=== PATIENT | male | born 1950 | race Caucasian/White ===

== ENCOUNTER → 2024-01-12 11:39 | Outpatient (REF) | payer OTHER, SELFPAY ==
[2024-01-12 12:32] LABS: % Basophils 0.3 % (0-2); % Eosinophils 1.6 % (0-6); % Immature Granulocytes 0.5 % (0-0.5); % Lymphocytes 23.2 % (20.5-51.1); % Monocytes 7.1 % (1.7-9.3); % Neutrophils 67.3 % (42.2-75.2); Absolute Eosinophils 0.2 10^3/uL (0-0.7); Absolute Immature Granulocytes 0.1 10^3/uL (0-0.05); Absolute Lymphocytes 2.2 10^3/uL (1.2-3.4); Absolute Monocytes 0.7 10^3/uL (0.1-0.6); Absolute Neutrophils 6.5 10^3/uL (1.4-6.5); Hematocrit 30.2 % (39.0-52.0); Hemoglobin 9.6 g/dL (13.0-18.0); Mean Corp Hgb Conc. 31.8 g/dL (33.0-37.0); Mean Corpuscular Hgb 32.2 pg (27.0-31.0); Mean Corpuscular Volume 101.3 fL (80.0-94.0); Mean Platelet Volume 10.7 fL (7.4-10.4); Nucleated Red Blood Cells % 0 % (-); Platelet Count 252 10^3/uL (130-400); Red Blood Cell Count 2.98 10^6/uL (4.70-6.10); Red Cell Dist. Width 17.2 % (11.5-14.5); White Blood Cell Count 9.6 10^3/uL (4.8-10.8)
[2024-01-12 12:50] LABS: NT-proBNP 9740 pg/ml
[2024-01-12 12:59] LABS: ALT (SGPT) 28 U/L (0-50); AST (SGOT) 30 U/L (17-59); Albumin 2.8 g/dl (3.5-5.0); Alkaline Phosphatase 277 U/L (38-126); Blood Urea Nitrogen 43 mg/dl (9-20); Calcium 8.5 mg/dl (8.4-10.2); Carbon Dioxide 27 mmol/L (22-30); Chloride 100 mmol/L (98-107); Glucose 95 mg/dl (70-99); Potassium 3.7 mmol/L (3.5-5.1); Sodium 137 mmol/L (135-145); Total Bilirubin 0.7 mg/dl (0.2-1.3); Total Protein 5.5 g/dl (6.3-8.2); eGFR 26.63
== END ==
LOC: REG 11:39
PROVIDERS: ATTENDING PHYSICIAN Nurse Practitioner Family
DX: R06.02 Shortness of breath (principal)
CPT/HCPCS: 36415; 71046; 80053; 83880; 85025; 93005

== ENCOUNTER 2024-01-29 12:10 | Inpatient (IN) | payer OTHER, SELFPAY ==
[2024-01-29] VITALS (13 sets, daily range): BP systolic 97–119; BP diastolic 58–82; BMI 25.3; BMI 23.8; BMI 23.4
[2024-01-29] MEDS: DUONEB 3 ML INH ×3 (07:47→19:22)
[2024-01-29 07:55] LABS: % Basophils 0.2 % (0-2); % Eosinophils 1.1 % (0-6); % Immature Granulocytes 0.4 % (0-0.5); % Lymphocytes 18.1 % (20.5-51.1); % Monocytes 5.8 % (1.7-9.3); % Neutrophils 74.4 % (42.2-75.2); Absolute Eosinophils 0.1 10^3/uL (0-0.7); Absolute Lymphocytes 1.6 10^3/uL (1.2-3.4); Absolute Monocytes 0.5 10^3/uL (0.1-0.6); Absolute Neutrophils 6.6 10^3/uL (1.4-6.5); Hematocrit 31.4 % (39.0-52.0); Mean Corp Hgb Conc. 31.8 g/dL (33.0-37.0); Mean Corpuscular Hgb 32.8 pg (27.0-31.0); Mean Platelet Volume 11.4 fL (7.4-10.4); Nucleated Red Blood Cells % 0 % (-); Platelet Count 137 10^3/uL (130-400); Red Blood Cell Count 3.05 10^6/uL (4.70-6.10); Red Cell Dist. Width 17.4 % (11.5-14.5); White Blood Cell Count 8.9 10^3/uL (4.8-10.8)
[2024-01-29 08:11] LABS: ALT (SGPT) 15 U/L (0-50); AST (SGOT) 21 U/L (17-59); Albumin 3.2 g/dl (3.5-5.0); Alkaline Phosphatase 280 U/L (38-126); Blood Urea Nitrogen 53 mg/dl (9-20); Calcium 8.5 mg/dl (8.4-10.2); Carbon Dioxide 23 mmol/L (22-30); Chloride 101 mmol/L (98-107); Estimated Creatinine Clearance 25 ml/min; Glucose 127 mg/dl (70-99); Potassium 3.3 mmol/L (3.5-5.1); Sodium 136 mmol/L (135-145); Total Bilirubin 0.8 mg/dl (0.2-1.3); Total Protein 5.9 g/dl (6.3-8.2); eGFR 22.29
[2024-01-29 08:21] LABS: NT-proBNP 18300 pg/ml; Troponin I 0.032 ng/ml
--- NOTE | 2024-01-29 09:08 | ED.GENMED ---
History of Present Illness
General
Chief Complaint: Breathing Problem
Source: patient
Exam Limitations: none
Time Seen by Provider: 01/29/24 07:14
Nursing documentation reviewed up to this point in time: agreed with
Travel History
Have you had any contact with someone who has COVID-19?: No
Do you have any symptoms of coronavirus? Fever > 100 degrees, chills, cough, shortness of breath, sore throat, loss of taste or smell, muscle aches, or headache?: No
History of Present Illness
History of Present Illness:
The patient is a 73-year-old man with past medical history of CHF who reports shortness of breath that is increased over the last 5 days. Patient reports that he has taken 80 mg of additional Lasix each day over the last 3 days. Patient denies
chest pain and fever. Patient reports that ever since experiencing COVID towards the end of this past November, he has had coughing and wheezing issues.
Past History
Past History
ED Past Medical History: Arrthythmia (Atrial fibrillation), CAD, CHF, HTN, Hypercholesterolemia, NIDDM, ND, Valvular disease, Hypothyroidism and Other (Ischemic cardiomyopathy, dual-chamber pacemaker)
ED Past Surgical History: Other (ICD)
Social History
Tobacco: Former smoker
Alcohol: None
Drug: None
Personal: Other
Living: with family
Employment: Other
Family History
Family History: CAD
Review of Systems
Review of Systems
Allergies reviewed?: Yes
All Other Systems: ROS reviewed and negative except as documented in HPI and ROS
Constitutional: Reports no symptoms
EENT: Reports no symptoms
Respiratory: Reports trouble breathing
Cardiac: Reports no symptoms
ABD/GI: Reports no symptoms
: Reports no symptoms
Musculoskeletal: Reports edema
Skin: Reports no symptoms
Neurological: Reports no symptoms
Endocrine: Reports no symptoms
Hematologic/Lymphatic: Reports no symptoms
Psychiatric: Reports no symptoms
Phy Exam
Physical Exam
Physical Exam:
Physical Exam
General: Patient is conversational but tachypneic when speaking
Neck: supple. no meningeal signs. normal psoterior pharynx
Heart: s1/s2 regular rate and rhythm,
Lungs: Mild tachypnea. Bilateral lower lobe crackles, left worse than right. Diffuse wheezing bilaterally
Abdomen: normal bowel sounds. not tender. no CVAT
Neuro: alert and oriented. no focal neurological deficits
Skin: no rash
Psychiatric: well kept. interactive and cooperative
Extremities: 2+ pitting edema bilateral lower extremities
Scores
Heart Failure Risk
Heart Failure Risk Score: Not Applicable
Course
Orders/Labs/Results
Orders:
Orders
01/29/24 07:08
Electrocardiogram (*1) Urgent
Reason for Study: Shortness of Breath
EKG- Treatment ONCE
01/29/24 07:35
Ipratropium/Albuterol Sulfate [Duoneb] 3 ml INH R NOW ONE
CR Chest - 2 Views Urgent
Comment:
Reason For Exam: SOB
01/29/24 07:36
Complete Blood Count/With Diff Urgent
Comprehensive Metabolic Panel Urgent
NT-proBNP Urgent
Troponin I Urgent
01/29/24 09:09
Potassium Chloride [KCl] 40 meq 0.9% Sodium Chloride 250 ml [Nss] 250 ml IV NOW
01/29/24 09:14
Potassium Chloride [KCl] 40 meq PO NOW STA
Abnormal Lab Results
01/29/24
07:36
RBC 3.05 L 10^6/uL
(4.70-6.10)
Hgb 10.0 L g/dL
(13.0-18.0)
Hct 31.4 L %
(39.0-52.0)
MCV 103.0 H fL
(80.0-94.0)
MCH 32.8 H pg
(27.0-31.0)
MCHC 31.8 L g/dL
(33.0-37.0)
RDW 17.4 H %
(11.5-14.5)
MPV 11.4 H fL
(7.4-10.4)
Absolute Neuts (auto) 6.6 H 10^3/uL
(1.4-6.5)
Lymphocytes % 18.1 L %
(20.5-51.1)
Potassium 3.3 L mmol/L
(3.5-5.1)
BUN 53 H mg/dl
(9-20)
Creatinine 2.9 H mg/dL
(0.7-1.3)
Glucose 127 H mg/dl
(70-99)
Alkaline Phosphatase 280 H U/L
(38-126)
Total Protein 5.9 L g/dl
(6.3-8.2)
Albumin 3.2 L g/dl
(3.5-5.0)
01/29/24 07:36
01/29/24 07:36
Vital Signs
Initial and Last Documented VS:
Initial Vital Signs
Temp Pulse Resp BP Pulse Ox
98.0 F 77 16 113/78 96
01/29/24 07:08 01/29/24 07:08 01/29/24 07:08 01/29/24 07:08 01/29/24 07:08
Last Documented Vital Signs
Temp Pulse Resp BP Pulse Ox
98.0 F 70 20 110/75 94
01/29/24 07:08 01/29/24 11:00 01/29/24 11:00 01/29/24 11:00 01/29/24 11:00
MDM/Problems Addressed
Differential Diagnosis Includes:
Acute on chronic CHF, pneumonia, PE
MDM/Problems Addressed:
Patient presents with acute on chronic shortness of breath
Chronic conditions affecting care: Cardiomyopathy
Acute Exacerbation and/or Progression of Chronic Illness:
Patient likely has acute on chronic CHF
Acute Exacerbation and/or Progression of Chronic Illness: Cardiomyopathy
*Radiology
Radiology exam reviewed: preliminary read by ED provider (Increased vascular congestion) and radiology read reviewed
*Pulse Oximetry
Patient hypoxic: no
*EKG
Interpreted by ED Provider?: Yes
Interpretation: abnormal
Comparison EKG: no changes
Rate: normal
Rhythm: ventricular paced
[place]: normal axis
Interval: normal interval
QRS Pattern: wide non-specific
Ischemia: non-specific ST changes
*Hand Finisher Interpretation
Rate: normal
Interpretation: abnormal
Rhythm: ventricular paced
*Critical Care Note
Total Time (30-74mins, 75-104mins- exclusive of procedures): 35 minutes of critical ca
comment:
35 minutes of critical care given to the patient including frequent reassessments of his respiratory effort, reviewing his chest x-ray, blood work, recent hospital records as well as his EKG and lab work.
Data Reviewed
Review of Other/Old Records Reveals: Testing (Last cardiac echo showed an EF of 10 to 15%)
Source: patient
Patient Management
Discussion with other providers: Hospitalist
Escalation/DeEscalation of care consider admission/obs:
Given patient's increased respiratory effort with just speaking, decision made to admit the patient for diuresis. Given his hypokalemia, his potassium will first be replaced before any Lasix is given.
ED Attending Note
-
Portions of this chart may have been created with voice recognition software.� Occasional wrong word or��sound alike� substitutions may have occurred due to the inherent limitations of voice recognition software.
Discharge Plan
Departure
Patient Disposition: Admit
Date of Disposition: 01/29/24
Time of Disposition: 09:08
Admit to: Telemetry
Presentation/result/management discussed w/ accepting MD/DO: Hospitalist
Patient with high blood pressure during this ER visit?: No
Condition: Fair
Covid-19: Not Applicable
Discharge Problem:
Acute on chronic CHF, Acute dyspnea
Prescriptions:
No Action
atorvastatin 40 MG tablet
40 mg PO HS
carvedilol 6.25 MG tablet
6.25 mg PO BID
lorazepam 0.5 MG tablet
0.5 mg PO .SEE BELOW PRN (Reason: anxiety)
Patient Comments:
01/29/2024, pt. filled this med. on 01/09/2024 for 60 tablets according to PDMP. Prescribed one tablet BIDPRN; however, pt. states to be taking 2 tablets HSPRN.
cyanocobalamin (vitamin B-12) 1,000 MCG tablet
1,000 mcg PO BID
allopurinol 100 MG tablet
100 mg PO BID
calcitriol 0.25 MCG capsule
0.25 mcg PO DAILY
amiodarone [Pacerone] 200 MG tablet
200 mg PO BID
magnesium oxide 500 MG tablet
500 mg PO DAILY
Eliquis 5 MG tablet
5 mg PO BID
aspirin 81 mg Tablet,Delayed Release (Dr/Ec)
81 mg PO DAILY
levothyroxine 88 mcg Tablet
88 mcg PO DAILY
tamsulosin 0.4 mg Capsule
0.4 mg PO HS
Patient Comments:
01/29/2024, took this morning b/c missed last night's dose per pt.
diphenhydramine-acetaminophen [Tylenol PM Extra Strength] 25-500 mg Tablet
2 tab PO HS PRN (Reason: sleep)
cholecalciferol (vitamin D3) 25 mcg (1,000 unit) Tablet
25 mcg PO BID
Blink Gel Tears 0.25 % Drops,Gel
1 drp ophthalmic (eye) BID
Rx Instructions:
01/29/2024, both eyes.
potassium chloride [Klor-Con M20] 20 MEQ tablet,ER particles/crystals
20 meq PO BID
trazodone 50 mg Tablet
50 mg PO HS PRN (Reason: sleep)
furosemide 80 mg Tablet
80 mg PO BID
albuterol sulfate 90 mcg/actuation Hfa Aerosol Inhaler
1 puff INHALATION R Q4HPRN PRN (Reason: sob)
PreserVision AREDS 2,148 mcg-113 mg-45 mg-17.4mg Tablet
1 tab PO BID
Referrals:
Pedro Franks MD [Family Provider] -
Interventions
Interventions:
*Risk Screen - Suicide Last Done: 01/29/24 07:30
*General Assessment Last Done: 01/29/24 07:30
*Neglect/Abuse Screening Last Done: 01/29/24 07:30
*ED COVID-19 Vaccine History Last Done: 01/29/24 07:08
ED- Cardiac Assessment Last Done: 01/29/24 07:31
ED- Pulmonary Assessment Last Done: 01/29/24 07:31
[2024-01-29] MEDS: KCL 40 MEQ PO (09:38)
--- NOTE | 2024-01-29 12:25 | HPS.HSE ---
Family Physician
-
Family Physician: Pedro Franks
Chief Complaint
-
Shortness of breath and weight gain.
History of Present Illness
Patient presents with progressive shortness of breath over the last 3 days.
Patient with known ischemic cardiomyopathy with EF of 10-15% close he has had end of November because of volume depletion and renal insufficiency leading to medication changes.
He states in the beginning of December he also had COVID�19 infection.
Over the last 3 days he started to notice increasing shortness of breath and also leg edema. He does not check his weight on a daily basis. His weight has gone up 30 pounds based on weight today in ER.
He states has been taking Lasix currently 80 mg twice a day. He took his morning dose.
Not much of cough but he has Associated wheezing. Denies any history of lung disease but uses albuterol inhaler at home.
No chest pain or palpitations.
He is not hypoxic but noted to have CHF on the chest x-ray and also elevated BNP.
Medical History
Past Medical History
Past Medical History: Reports Arrhythmia (Paroxysmal atrial fibrillation), CHF, HTN, Hypercholesterolemia, Hypothyroidism, Renal Failure (Chronic kidney disease stage III) and Other (Gout, BPH)
Past Surgical History: Reports Cardiac (Biventricular ICD)
Social History
Tobacco: Non-smoker
Alcohol: None
Drug: None
Family History
Family History: Not pertinent
Allergies / Home Medications
Allergies reflects when Allergies were last updated in [facility].
Home Medications with original date entered in [facility]
Allergy/Medication List:
Allergies
Allergy/AdvReac Type Severity Reaction Status Date / Time
Cephalosporins Allergy Rash Verified 01/29/24 07:13
moxifloxacin HCl Allergy Hives Verified 01/29/24 07:13
[From Avelox]
penicillin V Allergy Hives Verified 01/29/24 07:13
Penicillins Allergy Hives Verified 01/29/24 07:13
Home Medications
atorvastatin 40 mg tablet 40 mg PO HS High cholesterol 01/30/12
carvedilol 6.25 mg tablet 6.25 mg PO BID Blood pressure 01/30/12
lorazepam 0.5 mg tablet 0.5 mg PO .SEE BELOW PRN anxiety 01/30/12
allopurinol 100 mg tablet 100 mg PO BID GOUT 05/26/19
calcitriol 0.25 mcg capsule 0.25 mcg PO DAILY Kidney Disease 05/26/19
cyanocobalamin (vitamin B-12) 1,000 mcg tablet 1,000 mcg PO BID Supplement 05/26/19
amiodarone 200 mg tablet (Pacerone) 200 mg PO BID Arrhythmia 08/28/20
apixaban 5 mg tablet (Eliquis) 5 mg PO BID Blood clot prevention/tx 04/18/22
magnesium oxide 500 mg PO DAILY Electrolyte Repletion 04/18/22
aspirin 81 mg tablet,delayed release 81 mg PO DAILY Blood Clot Prevention/Tx 12/15/23
cholecalciferol (vitamin D3) 25 mcg (1,000 unit) tablet 25 mcg PO BID supplement 12/15/23
diphenhydramine 25 mg-acetaminophen 500 mg tablet (Tylenol PM Extra Strength) 2 tab PO HS PRN sleep 12/15/23
levothyroxine 88 mcg tablet 88 mcg PO DAILY thyroid 12/15/23
polyethylene glycol 400 0.25 % eye gel drops (Blink Gel Tears) 1 drp ophthalmic (eye) BID Eye Condition 12/15/23
tamsulosin 0.4 mg capsule 0.4 mg PO HS Urinary Issue 12/15/23
potassium chloride 20 mEq tablet,extended release(part/cryst) (Klor-Con M) 20 meq PO BID Electrolyte Repletion 12/16/23
albuterol sulfate 90 mcg/actuation aerosol inhaler 1 puff inhalation R Q4HPRN PRN sob 01/29/24
furosemide 80 mg tablet 80 mg PO BID Fluid Retention/Swelling 01/29/24
trazodone 50 mg tablet 50 mg PO HS PRN sleep 01/29/24
vitamins A,C,B-kroc-gihsak 2,148 mcg-113 mg-45 mg-17.4 mg tablet (PreserVision AREDS) 1 tab PO BID Supplement 01/29/24
Review of Systems
-
A 12 point ROS was completed and negative except as noted: Yes
Physical Exam
Vital Signs
Vital Signs
Temp Pulse Resp BP Pulse Ox
98.0 F 70 20 110/75 94
01/29/24 07:08 01/29/24 11:00 01/29/24 11:00 01/29/24 11:00 01/29/24 11:00
Physical Exam
General: No Apparent Distress
HEENT: Moist mucous membranes
Respiratory: Wheezes (Bilateral expiratory wheeze), Crackles (Bilateral lower zone) and Non Labored Respirations; No Accessory Resp Muscle Use
Cardiac: S1/S2, Regular Rhythm and JVD
GI: Soft and Non Tender
Musculoskeletal: Edema, Left Lower Extremity and Edema, Right Lower Extremity (1+ bilaterally)
Neuro: AO x 3
Psych: Calm; No Confused
Laboratory Results
-
01/29/24 07:36
01/29/24 07:36
Laboratory Results
Total Bilirubin 0.8 mg/dl (0.2-1.3) 01/29/24 07:36
AST 21 U/L (17-59) 01/29/24 07:36
ALT 15 U/L (0-50) 01/29/24 07:36
Alkaline Phosphatase 280 U/L (38-126) H 01/29/24 07:36
Troponin I 0.032 ng/ml 01/29/24 07:36
Data Reviewed
-
Diagnostic Radiology: Report Reviewed by me (Chest x-ray)
Lab Data: Labs Reviewed by me
Impression/Plan
-
Acute on chronic heart failure with reduced EF-patient known to have ischemic cardiomyopathy with EF of 10 to 15%. His got short of breath, increased lower extremity edema, increased weight, increased BNP and also chest x-ray evident of vascular
congestion noted all suggestive of acute CHF decompensation.
Unclear precipitating event.
Admit to hospital. Start on IV Lasix. Consult cardiology.
Acute bronchospasm - suspect cardiac wheeze. No history of COPD or asthma. Continue with Lasix and add DuoNeb nebulizers.
Chronic kidney disease stage IV based on recent GFR. Elevated creatinine compared to his most recent baseline. Follow closely creatinine with diuresis.
Hypertension-continue with his home medication
Paroxysmal atrial fibrillation-patient with a ventricular paced rhythm. Continue beta-laura, amiodarone, Eliquis.
Hypokalemia-replete
Full code
--- NOTE | 2024-01-29 12:49 | CON.CAR ---
Addendum entered and electronically signed by Zulema Fink MD 01/29/24 16:29:
I saw and examined the patient.
The AIR GUN OPERATOR's note was reviewed and I agree with the note.
Comment: 73 y/o male with ICM EF 10-15%, hx VT storm s/p VT ablation, on amiodarone, BI-V ICD in place (BS), CAD with stenting, dyslipidemia, PAF on Eliquis, and CKD. He recently had COVID in December. Since that time, he feels like he has been
more short of breath. He has undergone frequent life stressors with the loss of his best friend and sister this month. With this, he has not been weighing himself daily. Weight has gone up. He did try to increase his Lasix at home to no avail.
Currently, he is fine if he does not move but still short of breath with movement. He no chest pain or palpitations. On exam, he has an elevated JVP, bibasilar rales, regular rate and rhythm, abdomen is obese but soft, 1+ pitting edema
bilaterally. Chest x-ray showed pulmonary edema on my review of the images. Agree with IV Lasix with intensive monitoring of his creatinine given his CKD. Per his primary legal aid he is on asa and eliquis. Monitor tele given h/o VT.
Will follow.
Original Note:
Consultation
Consultation Request
Date/Time Consultation Requested: 01/29/24 1154
Date/Time Consultation Performed: 01/29/24 1255
Requesting Provider: Dr. Villalobos
Performing Provider: Marjan DELUCA for Dr. Fink
Reason for Consultation: CHF
Medical History
-
Chief Complaint: SOB, edema
History of Present Illness:
73 y/o male with ICM EF 10-15%, hx VT storm s/p VT ablation, on amiodarone, BI-V ICD in place (BS), CAD with stenting, dyslipidemia, PAF on Eliquis, and CKD. He was hospitalized in November 2023 with poor PO intake, hypotension, OFELIA. ACEI was stopped
and lasix was held. Diuretic later resumed as OP. He is here for evaluation of SOB and LE edema since Friday. He had two slices of salty pizza prior to this, but otherwise has been taking his lasix 80 mg PO BID. He actually took an extra 80 mg the
past 3 days, but it did not help. He does not monitor home weights daily, but OV weight 12/29/23 when he was feeling well was 73 kg and he is currently 82.3 kg in ER.
Past Medical History
Past Medical History: Arrhythmias, CAD, CHF, Hypercholesterolemia and Renal Failure
Social History
Tobacco: Former Smoker
Family History
Family History: Reviewed & Not Pertinent
Allergies / Home Medications
Allergy/AdvReac Type Severity Reaction Status Date / Time
Cephalosporins Allergy Rash Verified 01/29/24 07:13
moxifloxacin HCl Allergy Hives Verified 01/29/24 07:13
[From Avelox]
penicillin V Allergy Hives Verified 01/29/24 07:13
Penicillins Allergy Hives Verified 01/29/24 07:13
Medication Instructions Recorded Confirmed Type
atorvastatin 40 mg tablet 40 mg PO HS High cholesterol 01/30/12 01/29/24 History
carvedilol 6.25 mg tablet 6.25 mg PO BID Blood pressure 01/30/12 01/29/24 History
lorazepam 0.5 mg tablet 0.5 mg PO .SEE BELOW PRN 01/30/12 01/29/24 History
anxiety
allopurinol 100 mg tablet 100 mg PO BID GOUT 05/26/19 01/29/24 History
calcitriol 0.25 mcg capsule 0.25 mcg PO DAILY Kidney Disease 05/26/19 01/29/24 History
cyanocobalamin (vitamin B-12) 1,000 mcg PO BID Supplement 05/26/19 01/29/24 History
1,000 mcg tablet
amiodarone 200 mg tablet (Pacerone) 200 mg PO BID Arrhythmia 08/28/20 01/29/24 History
apixaban 5 mg tablet (Eliquis) 5 mg PO BID Blood clot 04/18/22 01/29/24 History
prevention/tx
magnesium oxide 500 mg PO DAILY Electrolyte 04/18/22 01/29/24 History
Repletion
aspirin 81 mg tablet,delayed 81 mg PO DAILY Blood Clot 12/15/23 01/29/24 History
release Prevention/Tx
cholecalciferol (vitamin D3) 25 25 mcg PO BID supplement 12/15/23 01/29/24 History
mcg (1,000 unit) tablet
diphenhydramine 25 2 tab PO HS PRN sleep 12/15/23 01/29/24 History
mg-acetaminophen 500 mg tablet
(Tylenol PM Extra Strength)
levothyroxine 88 mcg tablet 88 mcg PO DAILY thyroid 12/15/23 01/29/24 History
polyethylene glycol 400 0.25 % eye 1 drp ophthalmic (eye) BID Eye 12/15/23 01/29/24 History
gel drops (Blink Gel Tears) Condition
tamsulosin 0.4 mg capsule 0.4 mg PO HS Urinary Issue 12/15/23 01/29/24 History
potassium chloride 20 mEq 20 meq PO BID Electrolyte Repletion 12/16/23 01/29/24 History
tablet,extended
release(part/cryst) (Klor-Con M)
albuterol sulfate 90 mcg/actuation 1 puff inhalation R Q4HPRN PRN sob 01/29/24 01/29/24 History
aerosol inhaler
furosemide 80 mg tablet 80 mg PO BID Fluid 01/29/24 01/29/24 History
Retention/Swelling
trazodone 50 mg tablet 50 mg PO HS PRN sleep 01/29/24 01/29/24 History
vitamins A,C,K-iocw-rfiufw 2,148 1 tab PO BID Supplement 01/29/24 01/29/24 History
mcg-113 mg-45 mg-17.4 mg tablet
(PreserVision AREDS)
Review of Systems
-
History Source: Patient
All other systems: Negative unless noted
Respiratory: Trouble Breathing
Musculoskeletal: Edema
Physical Exam
Vital Signs
Temp Pulse Resp BP Pulse Ox
98.0 F 70 20 110/75 94
01/29/24 07:08 01/29/24 11:00 01/29/24 11:00 01/29/24 11:00 01/29/24 11:00
Lab Results
01/29/24 07:36
01/29/24 07:36
Troponin I 0.032 ng/ml 01/29/24 07:36
Cke-G-Kieeenqkipj Pept 66403 pg/ml 01/29/24 07:36
Physical Exam
General: Well Developed and No Apparent Distress
HEENT: Normocephalic and Anicteric
Respiratory: Wheezes (right upper base, slight) and Crackles (bases)
Cardiac: Regular Rhythm and Peripheral Edema (+2 BLE edema)
Genito-urinary: Clear Urine
Musculoskeletal: Edema
Skin: Warm and Dry
Neuro: AO x 3
Psych: Calm
Impression / Plan
-
Ymrkd-lj-uxfdqjq HFrEF:
-agree with IV diuresis, which requires intensive monitoring
-CHF consult
-sodium/fluid restriction
ICM EF 10-15%:
-continue BB
-other meds limited by renal function
-Bi-V ICD in place
Hx VT s/p ablation:
-on amiodarone and BB
-Bi-V ICD in place
Hypokalemia:
-replace and monitor
CAD with hx stenting:
-continue ASA, statin, BB
PAF:
-stable in SR
-continue Eliquis for OAC
CKD:
-monitor with diuresis
Data Reviewed
-
EKG: Tracing Personally Visualized and interpreted ( [facility]OOK)
Radiology: Report Reviewed by me (CXR: Subtle blunting of the posterior costophrenic angle. Mild cardiomegaly. Mild vascular and slightly increased interstitial prominence is noted, as well has suggestion of subtle patchy acinar opacity, raising
possibility of congestive heart failure or volume overload. No pneumothorax.)
Medical Tests (Nuc Med, Echo etc): Report Reviewed by me (Echo 12/16/23: Severely dilated LV with severely reduced systolic function. Estimated EF of 10-15%. LAD and RCA territory hypokinesis and akinesis. Normal right ventricular size and
function. Severe left atrial dilation. Thickened and restricted leaflet motion with moderate mitral regurgitation.)
Labs: Labs Reviewed by me
[2024-01-29] MEDS: LASIX 80 MG IV (16:24)
[2024-01-29] MEDS: COREG 6.25 MG PO (20:55)
[2024-01-29] MEDS: ELIQUIS 5 MG PO (20:56)
[2024-01-29] MEDS: KCL 20 MEQ PO (20:56)
[2024-01-29] MEDS: REFRESH CELLUVISC GEL 1 DROPS BOTH EYES (20:57)
[2024-01-29] MEDS: PACERONE 200 MG PO (20:57)
[2024-01-29] MEDS: VITAMIN B-12 1000 MCG PO (20:57)
[2024-01-29] MEDS: VITAMIN D3 (cholecalciferol) 25 MCG PO (20:57)
[2024-01-29] MEDS: OCUVITE SOFTGEL 1 CAP PO (20:57)
[2024-01-29] MEDS: ZYLOPRIM 100 MG PO (20:58)
[2024-01-29] MEDS: LIPITOR 40 MG PO (21:58)
[2024-01-29] MEDS: FLOMAX 0.400000000000000022 MG PO (21:58)
[2024-01-29] MEDS: ATIVAN 1 MG PO (22:07)
[2024-01-30 03:20] VITALS: BP 111/48
[2024-01-30 06:00] VITALS: BMI 23.4
[2024-01-30] MEDS: SYNTHROID 88 MCG PO (06:16)
[2024-01-30 06:56] LABS: Hematocrit 29.7 % (39.0-52.0); Hemoglobin 9.4 g/dL (13.0-18.0); Mean Corp Hgb Conc. 31.6 g/dL (33.0-37.0); Mean Corpuscular Hgb 32.5 pg (27.0-31.0); Mean Corpuscular Volume 102.8 fL (80.0-94.0); Mean Platelet Volume 10.9 fL (7.4-10.4); Platelet Count 122 10^3/uL (130-400); Red Blood Cell Count 2.89 10^6/uL (4.70-6.10); Red Cell Dist. Width 17.2 % (11.5-14.5); White Blood Cell Count 8.7 10^3/uL (4.8-10.8)
[2024-01-30 07:00] VITALS: BP 115/79
[2024-01-30] MEDS: DUONEB 3 ML INH ×4 (07:06→19:23)
[2024-01-30 07:14] LABS: Blood Urea Nitrogen 52 mg/dl (9-20); Calcium 8.6 mg/dl (8.4-10.2); Carbon Dioxide 25 mmol/L (22-30); Chloride 103 mmol/L (98-107); Estimated Creatinine Clearance 25 ml/min; Glucose 76 mg/dl (70-99); Potassium 3.8 mmol/L (3.5-5.1); Sodium 137 mmol/L (135-145); eGFR 23.24
[2024-01-30] MEDS: MAGNESIUM OXIDE 500 MG PO (08:37)
[2024-01-30] MEDS: VITAMIN B-12 1000 MCG PO ×2 (08:37→21:13)
[2024-01-30] MEDS: ZYLOPRIM 100 MG PO ×2 (08:37→21:13)
[2024-01-30] MEDS: PACERONE 200 MG PO ×2 (08:37→21:13)
[2024-01-30] MEDS: ELIQUIS 5 MG PO ×2 (08:37→21:12)
[2024-01-30] MEDS: KCL 20 MEQ PO ×2 (08:37→21:13)
[2024-01-30] MEDS: OCUVITE SOFTGEL 1 CAP PO ×2 (08:37→21:12)
[2024-01-30] MEDS: REFRESH CELLUVISC GEL 6 DROPS BOTH EYES (08:38)
[2024-01-30] MEDS: ROCALTROL 0.25 MCG PO (08:38)
[2024-01-30] MEDS: LASIX 80 MG IV ×2 (08:38→15:48)
[2024-01-30] MEDS: ASPIR LOW (ENTERIC COATED) 81 MG PO (08:38)
[2024-01-30] MEDS: VITAMIN D3 (cholecalciferol) 25 MCG PO ×2 (08:38→21:13)
[2024-01-30] MEDS: COREG 6.25 MG PO ×2 (08:38→21:12)
[2024-01-30 10:55] VITALS: BMI 23.4
[2024-01-30 11:00] VITALS: BP 118/67
--- NOTE | 2024-01-30 11:15 | W.PN.HOSP.TC ---
Today's Communication/Plan
-
Continue with IV diuresis. Follow weight.
Continue the nebulizers. Add steroids.
Assessment / Plan
Assessment / Plan
Acute on chronic heart failure with reduced EF-patient known to have ischemic cardiomyopathy with EF of 10 to 15%.� His got short of breath, increased lower extremity edema, increased weight, increased BNP and also chest x-ray evident of vascular
congestion noted all suggestive of acute CHF decompensation.
Unclear precipitating event.
Improving wt ;remains on RA .CW IV Lasix.�
Appreciate cardiology input.
Acute bronchospasm - suspected cardiac wheeze.� No history of COPD or asthma but had recent COVID . Remains wheezy and symptomatic. He has cough which is dry . Can rule out post infection reactive airway disease.� Continue with Lasix and add DuoNeb
nebulizers , add steroids and see.
Chronic kidney disease stage IV based on recent GFR.� Elevated creatinine compared to his most recent baseline.� Follow closely creatinine with diuresis.
Hypertension-continue with his home medication
Paroxysmal atrial fibrillation-patient with a ventricular paced rhythm.� Continue beta-laura, amiodarone, Eliquis.
Hypokalemia-replete
Full code
Anticipated Discharge: 24 - 48 hours
Subjective/Interval History
-
Date of Service: January 30, 2024
Shortness of breath better but still feels it. He is more symptomatic because of wheeze. He has it in the night and which keeps him awake.
Before coming to the hospital he was also having cough not much phlegm. No history of COPD/emphysema / asthma.
Objective Data
-
Labs:
Laboratory Results
01/30/24
06:27
WBC 8.7
Hgb 9.4 L
Hct 29.7 L
Plt Count 122 L
Sodium 137
Potassium 3.8
Chloride 103
Carbon Dioxide 25
BUN 52 H
Creatinine 2.8 H
Glucose 76
Calcium 8.6
Vital Signs:
Vital Signs
Temp Pulse Resp BP Pulse Ox
97.4 F 70 20 115/79 92
01/30/24 07:00 01/30/24 11:14 01/30/24 11:14 01/30/24 07:00 01/30/24 11:14
I&O
01/29/24 01/30/24 01/31/24
06:59 06:59 06:59
Intake Total 440 / 440 240 / 240
Output Total 425 / 425 740 / 740
Balance 15 / 15 -500 / -500
Review of Systems
-
Constitutional: Denies Fever
EENT: Denies Sore Throat
Respiratory: Reports Cough, Trouble Breathing and Wheezing
Cardiac: Denies Chest Pain
Abdomen/GI: Denies Abdominal Pain, Nausea or Vomiting
Neuro: Denies Dizzy
Physical Exam
-
General: No Apparent Distress
HEENT: Moist Mucous Membranes
Respiratory: Wheezes, Crackles (bibasal) and Non Labored Respirations; Negative Accessory Resp Muscle Use
Cardiac: Regular Rhythm (av paced on monitor) and S1/S2
GI: Soft
Musculoskeletal: Edema, Right Lower Extrem and Edema, Left Lower Extrem
Neuro: AO x 3
Psych: Calm
Data Reviewed
-
Labs: Labs Reviewed by me
[2024-01-30] MEDS: DECADRON 4 MG IV (12:33)
--- NOTE | 2024-01-30 14:31 | W.PN.CD ---
Today's Communication / Plan
-
start hydralazine 25mg bid
OK with home tomorrow
Impression / Plan
-
Sgoqy-ew-yiazups HFrEF:
-wt down 14 lbs. He wants to go home by tomorrow
- We had a long discussion about dietary sodium restriction. Thierno has not been compliant. He lived with EF 10% for past 25 yrs with NO clinical CHF. He is now in a different phase and is declining. He understands that his life is nearing the end and
tells me he doubts he will make it to the end of 2023. Unfortunately I believe he is correct.
- Add hydralazine 25mg bid for afterload reduction. We had to stop ACEI/ARB due to hyperkalemia with renal failure
ICM EF 10-15%:
-continue BB
-Add hydralazine 25mg bid
-other meds limited by renal function
-Bi-V ICD in place
Hx VT s/p ablation:
-on amiodarone and BB
-Bi-V ICD in place
Hypokalemia:
-replace and monitor
CAD with hx stenting:
-continue ASA, statin, BB
PAF:
-stable in SR
-continue Eliquis for OAC
CKD:
-diuresed without penalty
Dispo: I think he is fine for discharge tomorrow. Asked him to call my office to see me in next 4 wks
Physical Exam
Vital Signs/Labs
Vital Signs
Temp Pulse Resp BP Pulse Ox
97.4 F 70 20 118/67 92
01/30/24 11:00 01/30/24 11:14 01/30/24 11:14 01/30/24 11:00 01/30/24 11:14
01/29/24 01/30/24 01/31/24
06:59 06:59 06:59
Actual Weight 167 lb 9.6 oz
01/30/24 06:27
01/30/24 06:27
01/29/24
07:36
Ngk-C-Zkfqumkugxm Pept 48099
LAB Results
01/29/24
07:36
Troponin I 0.032
Physical Exam
Constitutional: No acute distress and Comfortable
EENT: Anicteric
Cardiovascular: Rhythm & rate is regular, S1S2 is normal and Murmur/rub/gallop absent
Respiratory: Respiratory effort normal, Lungs clear to auscul. and Wheeze Absent
GI: Soft and Non tender
Neuro/Psych: Motor deficits absent
Data Reviewed
-
Date of Service: January 30, 2024
[2024-01-30 15:00] VITALS: BP 119/79
[2024-01-30] MEDS: APRESOLINE 25 MG PO ×2 (15:48→22:16)
--- NOTE | 2024-01-30 16:02 | CM ---
Addendum entered by KIN Dos Santos 01/30/24 16:17:
Received TT from Palliative offering services. Went to talk to patient however he was not available. Will let CM on w/e know to ask him if he wants Palliative.
Original Note:
Reviewed chart, met with patient to obtain information for assessment. Patient stated that he lives with his sister in a single home. He is independent with his ADLs and personal care as well as dressing, bathing and toileting. He ambulates without
the use of an assistive device. 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
Patient drives and can get to all his appointments.
He has never had VN (did in the distant past)
Patient has never been to a SNF.
Patient stated that he is going to drive himself home tomorrow when he is hoping to be cleared for discharge.
Patient has a prescription plan and uses the [facility] pharmacy on [facility] for all of his medications.
His PCP is Dr. Pedro Franks.
Patient does not anticipate any needs from CM dept.
Plan: Case management will continue to follow and assist with discharge planning. Patient would like to return home when stable.
--- NOTE | 2024-01-30 16:04 | W.HF.CON ---
Heart Failure
- LV Function
Left ventricular function study result: LV Ejection fraction </= 35% (ECHO 12/16/23)
Ejection Fraction Percentage: 10-15
- ARNI
Patient already on ARNI: No
Heart Failure ARNI Contraindication: Acute Renal Failure, Hypotension
- ACEI/ARB
Patient already on ACEI/ARB: No
Heart Failure ACEI/ARB Contraindication: Acute Renal Failure, Hypotension
- Beta Vivian
Patient already on Evidence Based Beta Vivian: Yes
- Mineralocorticord Receptor Antagonist
Patient already on MRA: No
Heart Failure MRA Contraindication: Cr > 2.5 in Men
- SGLT-2 Inhibitor
Patient already on SGLT-2 Inhibitor: No
Heart Failure SGLT-2 Inhibitor Contraindication: eGFR < 25
- Afib Anticoagulation
Patient already on Anticoagulation for Afib: Yes
- NYHA CHF Classification
NYHA CHF Classification Level: Class III - Symptoms w/ min exertion, interferes w/ nml daily activity
- ACC/AHA Stage
ACC/AHA Stage: Stage D: Advanced Heart Failure
[2024-01-30 19:57] VITALS: BP 124/80
[2024-01-30] MEDS: REFRESH CELLUVISC GEL 1 DROPS BOTH EYES (21:11)
[2024-01-30] MEDS: FLOMAX 0.400000000000000022 MG PO (21:12)
[2024-01-30] MEDS: LIPITOR 40 MG PO (21:12)
[2024-01-30] MEDS: ATIVAN 1 MG PO (22:20)
[2024-01-30 23:01] VITALS: BP 121/69
[2024-01-31] MEDS: DECADRON 4 MG IV (00:15)
[2024-01-31 03:38] VITALS: BP 101/60
[2024-01-31 06:05] VITALS: BMI 22.8
[2024-01-31] MEDS: SYNTHROID 88 MCG PO (06:39)
[2024-01-31 07:21] VITALS: BP 101/44
[2024-01-31] MEDS: DUONEB 3 ML INH (07:53)
[2024-01-31 08:35] LABS: Blood Urea Nitrogen 53 mg/dl (9-20); Calcium 8.7 mg/dl (8.4-10.2); Carbon Dioxide 23 mmol/L (22-30); Chloride 106 mmol/L (98-107); Estimated Creatinine Clearance 24 ml/min; Glucose 98 mg/dl (70-99); Potassium 4.6 mmol/L (3.5-5.1); Sodium 137 mmol/L (135-145); eGFR 22.29
[2024-01-31] MEDS: OCUVITE SOFTGEL 1 CAP PO (08:37)
[2024-01-31] MEDS: ROCALTROL 0.25 MCG PO (08:37)
[2024-01-31] MEDS: ELIQUIS 5 MG PO (08:37)
[2024-01-31] MEDS: ZYLOPRIM 100 MG PO (08:37)
[2024-01-31] MEDS: ASPIR LOW (ENTERIC COATED) 81 MG PO (08:37)
[2024-01-31] MEDS: KCL 20 MEQ PO (08:38)
[2024-01-31] MEDS: COREG 6.25 MG PO (08:38)
[2024-01-31] MEDS: VITAMIN D3 (cholecalciferol) 25 MCG PO (08:38)
[2024-01-31] MEDS: MAGNESIUM OXIDE 500 MG PO (08:38)
[2024-01-31] MEDS: PACERONE 200 MG PO (08:38)
[2024-01-31] MEDS: APRESOLINE 25 MG PO (08:38)
[2024-01-31] MEDS: VITAMIN B-12 1000 MCG PO (08:38)
[2024-01-31] MEDS: REFRESH CELLUVISC GEL 6 DROPS BOTH EYES (08:38)
--- NOTE | 2024-01-31 09:44 | W.PN.HOSP.TC ---
Today's Communication/Plan
-
DC
Assessment / Plan
Assessment / Plan
Acute on chronic heart failure with reduced EF-patient known to have ischemic cardiomyopathy with EF of 10 to 15%.� short of breath, increased lower extremity edema, increased weight, increased BNP and also chest x-ray evident of vascular
congestion noted all suggestive of acute CHF decompensation.
Unclear precipitating event. Suspect compliance issues.
Improving wt ;remains on RA .
Switch to oral Lasix.
Appreciate cardiology input-not tolerating ROYAL inhibitor/ARB because of renal issues. Switch to hydralazine.
Acute bronchospasm - suspected cardiac wheeze.� No history of COPD or asthma but had recent COVID . Remains wheezy and symptomatic. He has cough which is dry . Can rule out post infection reactive airway disease from acute bronchitis.� added
steroids-improving breathing. Switch to oral prednisone and taper at home. He has as needed inhaler at home.
Chronic kidney disease stage IV based on recent GFR.� Elevated creatinine compared to his most recent baseline.� Follow closely creatinine with diuresis. Advised to repeat BMP in a week
Hypertension-continue with his current regimen
Paroxysmal atrial fibrillation-patient with a ventricular paced rhythm.� Continue beta-laura, amiodarone, Eliquis.
Hypokalemia-replete
Full code
Medically stable for discharge home today.
Discussed with patient regarding importance of compliance with diet, weight and medication and follow-up.
Also discussed about medication changes.
Total time of discharge 32 min
Anticipated Discharge: Today
Subjective/Interval History
-
Date of Service: January 31, 2024
Feeling improved with regards to breathing. His weight is down to 163 pounds which he thinks is low for him. The weight of 15o's artificially low apparently for him.
Less wheezy today.
He has a cough but not green in color not increased amount.
Objective Data
-
Labs:
Laboratory Results
01/31/24
07:22
Sodium 137
Potassium 4.6
Chloride 106
Carbon Dioxide 23
BUN 53 H
Creatinine 2.9 H
Glucose 98
Calcium 8.7
Vital Signs:
Vital Signs
Temp Pulse Resp BP Pulse Ox
97.9 F 70 16 101/44 95
01/31/24 07:21 01/31/24 07:56 01/31/24 07:56 01/31/24 07:21 01/31/24 07:56
I&O
01/30/24 01/31/24 02/01/24
06:59 06:59 07:59
Intake Total 440 / 440 1380 / 1380
Output Total 425 / 425 2280 / 2280
Balance 15 / 15 -900 / -900
Review of Systems
-
Constitutional: Denies Fever
EENT: Denies Sore Throat
Cardiac: Denies Chest Pain
Abdomen/GI: Denies Nausea or Vomiting
Neuro: Denies Dizzy
Physical Exam
-
General: No Apparent Distress
HEENT: Moist Mucous Membranes
Respiratory: Wheezes (Faint intermittent wheeze but much improved.) and Non Labored Respirations; Negative Crackles or Accessory Resp Muscle Use
Cardiac: Regular Rhythm and S1/S2
Neuro: AO x 3
Psych: Calm
Data Reviewed
-
Labs: Labs Reviewed by me
--- NOTE | 2024-01-31 09:59 | W.DS.TRANS ---
DC Summary - Voip Technician
-
Discharge Instructions:
Sleep Apnea Risk Intermediate
Discharge Diagnosis/Procedures CHF decompensation ;possible acute bronchitis
Diet 2 Gram Sodium
Activity As tolerated
Driving Restrictions As prior to admission
Bathing Restrictions None
Blood Work BMP in one week -arrange through your PCP/
pastoral counselor
Specialty Instructions Weigh Daily
Instructions: *CBC Heart Failure Instructions
Stand-Alone Forms:
Changes to Home Medications: Yes
Discharge Medications:
DC Medications w/original date entered in [employer]
atorvastatin 40 mg tablet 40 mg PO HS High cholesterol 01/30/12
carvedilol 6.25 mg tablet 6.25 mg PO BID Blood pressure 01/30/12
lorazepam 0.5 mg tablet 0.5 mg PO .SEE BELOW PRN anxiety 01/30/12
allopurinol 100 mg tablet 100 mg PO BID GOUT 05/26/19
calcitriol 0.25 mcg capsule 0.25 mcg PO DAILY Kidney Disease 05/26/19
cyanocobalamin (vitamin B-12) 1,000 mcg tablet 1,000 mcg PO BID Supplement 05/26/19
amiodarone 200 mg tablet (Pacerone) 200 mg PO BID Arrhythmia 08/28/20
apixaban 5 mg tablet (Eliquis) 5 mg PO BID Blood clot prevention/tx 04/18/22
magnesium oxide 500 mg PO DAILY Electrolyte Repletion 04/18/22
aspirin 81 mg tablet,delayed release 81 mg PO DAILY Blood Clot Prevention/Tx 12/15/23
cholecalciferol (vitamin D3) 25 mcg (1,000 unit) tablet 25 mcg PO BID supplement 12/15/23
diphenhydramine 25 mg-acetaminophen 500 mg tablet (Tylenol PM Extra Strength) 2 tab PO HS PRN sleep 12/15/23
levothyroxine 88 mcg tablet 88 mcg PO DAILY AT 0700 thyroid 12/15/23
polyethylene glycol 400 0.25 % eye gel drops (Blink Gel Tears) 1 drp ophthalmic (eye) BID Eye Condition 12/15/23
tamsulosin 0.4 mg capsule 0.4 mg PO HS Urinary Issue 12/15/23
potassium chloride 20 mEq tablet,extended release(part/cryst) (Klor-Con M) 20 meq PO BID Electrolyte Repletion 12/16/23
albuterol sulfate 90 mcg/actuation aerosol inhaler 1 puff inhalation R Q4HPRN PRN sob 01/29/24
furosemide 80 mg tablet 80 mg PO BID@0800,1600 Fluid Retention/Swelling 01/29/24
trazodone 50 mg tablet 50 mg PO HS PRN sleep 01/29/24
vitamins A,C,O-ljyv-ldpzeb 2,148 mcg-113 mg-45 mg-17.4 mg tablet (PreserVision AREDS) 1 tab PO BID Supplement 01/29/24
hydralazine 25 mg tablet 25 mg PO BID #60 tabs 01/31/24
pantoprazole 40 mg tablet,delayed release (Protonix) 40 mg PO DAILY #7 tabs 01/31/24
prednisone 10 mg tablet 10 mg PO DIRECTED #12 tabs 01/31/24
Home Medication Changes
Medication-prednisone, Protonix, hydralazine
Pending Results: No
--- NOTE | 2024-01-31 10:29 | CM ---
Met with patient at bedside
Palliative Care services offered; patient declined
Transport: drive self home
IMM benefit explained; form signed
Plan: discharge to home without services
[2024-01-31] MEDS: LASIX IV (10:40)
--- NOTE | 2024-01-31 10:50 | W.PN.CD ---
Today's Communication / Plan
-
- Stable for discharge
Impression / Plan
-
Mswkw-ws-vsfsclf HFrEF:
-wt down 14 lbs. He wants to go home by tomorrow
- We had a long discussion about dietary sodium restriction. Thierno has not been compliant. He lived with EF 10% for past 25 yrs with NO clinical CHF. He is now in a different phase and is declining. He understands that his life is nearing the end and
tells me he doubts he will make it to the end of 2023. Unfortunately I believe he is correct.
- hydralazine 25mg bid for afterload reduction. We had to stop ACEI/ARB due to hyperkalemia with renal failure
ICM EF 10-15%:
-continue BB
-Add hydralazine 25mg bid
-other meds limited by renal function
-Bi-V ICD in place
Hx VT s/p ablation:
-on amiodarone and BB
-Bi-V ICD in place
Hypokalemia:
-replace and monitor
CAD with hx stenting:
-continue ASA, statin, BB
PAF:
-stable in SR
-continue Eliquis for OAC
CKD:
-diuresed without penalty
Dispo:
-Discharge home
- follow up with Dr. Branham in4 weeks.
Physical Exam
Vital Signs/Labs
Vital Signs
Temp Pulse Resp BP Pulse Ox
97.9 F 70 16 101/44 95
01/31/24 07:21 01/31/24 07:56 01/31/24 07:56 01/31/24 07:21 01/31/24 07:56
01/30/24 01/31/24 02/01/24
06:59 06:59 07:59
Actual Weight 76.022 kg 74.106 kg
01/30/24 06:27
01/31/24 07:22
01/29/24
07:36
Hlq-Y-Bbxfdjytenk Pept 15195
LAB Results
01/29/24
07:36
Troponin I 0.032
Physical Exam
Constitutional: No acute distress and Comfortable
EENT: Anicteric and Moist mucous membranes
Cardiovascular: Rhythm & rate is regular, Pedal edema is absent and JVD pressure is normal
Respiratory: Respiratory effort normal, Lungs clear to auscul. and Wheeze Absent
GI: Soft, Non tender and Normal bowel sounds
Neuro/Psych: Alert, Oriented and AO x 3
Data Reviewed
-
Date of Service: January 31, 2024
Medical Decision Making: External Notes, Reviewed Test Results, Independent Historian Assessment, Test Interpretation and Review of Case with other Provider
EKG: Tracing Personally Visualized and interpreted
Echo: Report Reviewed by me
Medical Tests (PFT, Pathology etc): Report Reviewed by me
Labs: Labs Reviewed by me
Old Records: Reviewed
--- NOTE | 2024-01-31 15:17 | W.DCSUMMARY ---
Discharge Summary
Discharge Data
Date of Admission: 01/29/24
Date of Discharge: 01/31/24
-
Pending Results: No
Hospital Course
Primary diagnosis:
Acute on chronic heart failure with reduced EF
Ischemic cardiomyopathy with EF 10 to 15%.
Possible bronchitis
Secondary diagnosis:
Chronic kidney disease stage IV
Hypertension
Paroxysmal atrial fibrillation
Hospital course:
Patient with a longstanding history of ischemic cardiomyopathy with EF of 10 to 15% without much recovery and with a BiV ICD has not been that compliant with his weight checking and diuretics because of personal losses this month. He came in with
increasing shortness of breath and found to be in CHF. He has increased lower extremity edema, increased BNP and chest x-ray suggestive of vascular congestion. He was seen by dental equipment mechanic was put on IV 80 mg twice daily Lasix with improved weight
of 18 pounds lesser. With his renal failure he was at a candidate for ROYAL inhibitors or ARB so hydralazine was started by cardiology.
Concurrent with the CHF there was active bronchospasm which was thought may be cardiac wheeze. He also was complaining of some cough and despite diuresis he still had some lingering wheezing which raises a concern for possible bronchitis. He was
put on steroids which was switched to oral prednisone at the time of discharge. His chronic kidney disease stage IV. His creatinine was 2.9 slightly higher than baseline 2.5 recently and remained so despite diuresis. He was advised to repeat BMP
in a week .
Seen by his primary dental equipment mechanic who is known him for many years. He lived with EF 10% for past 25 years. Is felt to be in a different phase of life and is declining. Patient understood that his life is nearing the end and told
dental equipment mechanic he doubts he will make it to the end of 2023 which unfortunately was felt to be correct by dental equipment mechanic
Consultants on board:
Maintenance Welder Dr. Branham
Discharge Plan
-
Patient Disposition: Home (Routine Discharge)
Discharge Diagnosis/Procedures: CHF decompensation ;possible acute bronchitis
Condition: Good
Diet: 2 Gram Sodium
Activity: As tolerated
Driving Restrictions: As prior to admission
Bathing Restrictions: None
Blood Work: BMP in one week -arrange through your PCP/dental equipment mechanic
Specialty Instructions: Weigh Daily- Call MD for wt gain/loss 3 lbs overnight/5 lbs in 1 week
Instructions: *CBC Heart Failure Instructions
Referrals:
Pedro Franks MD [Family Provider] - in less than 1 week
Zulema Fink MD [Active] - in one week
Prescriptions:
New
hydralazine 25 mg Tablet
25 mg PO BID Qty: 60 0RF
prednisone 10 mg tablet
10 mg PO DIRECTED Qty: 12 0RF
Rx Instructions:
30mg daily * 3 days and cut it by 10mg every 2 days and stop once done with 10mg tabs
pantoprazole [Protonix] 40 mg tablet,delayed release (DR/EC)
40 mg PO DAILY Qty: 7 0RF
Rx Instructions:
take it while on steroids
Continued
atorvastatin 40 MG tablet
40 mg PO HS
carvedilol 6.25 MG tablet
6.25 mg PO BID
lorazepam 0.5 MG tablet
0.5 mg PO .SEE BELOW PRN (Reason: anxiety)
Patient Comments:
01/29/2024, pt. filled this med. on 01/09/2024 for 60 tablets according to PDMP. Prescribed one tablet BIDPRN; however, pt. states to be taking 2 tablets HSPRN.
cyanocobalamin (vitamin B-12) 1,000 MCG tablet
1,000 mcg PO BID
allopurinol 100 MG tablet
100 mg PO BID
calcitriol 0.25 MCG capsule
0.25 mcg PO DAILY
amiodarone [Pacerone] 200 MG tablet
200 mg PO BID
magnesium oxide 500 MG tablet
500 mg PO DAILY
Eliquis 5 MG tablet
5 mg PO BID
aspirin 81 mg Tablet,Delayed Release (Dr/Ec)
81 mg PO DAILY
levothyroxine 88 mcg Tablet
88 mcg PO DAILY AT 0700
tamsulosin 0.4 mg Capsule
0.4 mg PO HS
Patient Comments:
01/29/2024, took this morning b/c missed last night's dose per pt.
diphenhydramine-acetaminophen [Tylenol PM Extra Strength] 25-500 mg Tablet
2 tab PO HS PRN (Reason: sleep)
cholecalciferol (vitamin D3) 25 mcg (1,000 unit) Tablet
25 mcg PO BID
Blink Gel Tears 0.25 % Drops,Gel
1 drp ophthalmic (eye) BID
Rx Instructions:
01/29/2024, both eyes.
potassium chloride [Klor-Con M20] 20 MEQ tablet,ER particles/crystals
20 meq PO BID
trazodone 50 mg Tablet
50 mg PO HS PRN (Reason: sleep)
furosemide 80 mg Tablet
80 mg PO BID@0800,1600
albuterol sulfate 90 mcg/actuation Hfa Aerosol Inhaler
1 puff INHALATION R Q4HPRN PRN (Reason: sob)
PreserVision AREDS 2,148 mcg-113 mg-45 mg-17.4mg Tablet
1 tab PO BID
Discharge Orders:
Discharge Patient (As Directed); Ordered 01/31/24
Ordered By: Ramakrishna Villalobos
Discharge Date and Time
Discharge Date/Time: 01/31/24 11:10
== END 2024-01-31 11:10 | disposition home or self-care (01) | DRG 291 ==
LOC: 3 WEST ACU 12:10
PROVIDERS: ADMITTING PHYSICIAN Internal Medicine; CONSULT PHYSICIAN Internal Medicine Cardiovascular Disease; EMERGENCY PHYSICIAN Emergency Medicine; FAMILY PHYSICIAN Internal Medicine Geriatric Medicine
DX: I13.0 Hypertensive heart and chronic kidney disease with heart failure and stage 1 through stage 4 chronic kidney disease, or unspecified chronic kidney disease (principal); I50.23 Acute on chronic systolic (congestive) heart failure; N18.4 Chronic kidney disease, stage 4 (severe); J20.9 Acute bronchitis, unspecified; Z87.891 Personal history of nicotine dependence; E03.9 Hypothyroidism, unspecified; E11.22 Type 2 diabetes mellitus with diabetic chronic kidney disease; E78.00 Pure hypercholesterolemia, unspecified; I25.10 Atherosclerotic heart disease of native coronary artery without angina pectoris; I48.0 Paroxysmal atrial fibrillation; J98.01 Acute bronchospasm; E87.6 Hypokalemia; I25.5 Ischemic cardiomyopathy; Z91.119 Patient's noncompliance with dietary regimen due to unspecified reason; I25.2 Old myocardial infarction; Z95.810 Presence of automatic (implantable) cardiac defibrillator; Z79.01 Long term (current) use of anticoagulants; Z79.82 Long term (current) use of aspirin; Z79.890 Hormone replacement therapy; Z88.1 Allergy status to other antibiotic agents; Z88.0 Allergy status to penicillin; Z95.5 Presence of coronary angioplasty implant and graft; Z86.16 Personal history of COVID-19
CPT/HCPCS: 71046; 80048; 80053; 83880; 84484; 85025; 85027; 93005; 94640; 99291

== ENCOUNTER 2024-01-31 15:53 | Inpatient (IN) | payer OTHER, SELFPAY ==
[2024-01-31] VITALS (62 sets, daily range): BP systolic 64–109; BP diastolic 51–82; BMI 23.4
[2024-01-31] MEDS: CALCIUM CHLORIDE 10% SYRINGE 500 MG IV (12:10)
[2024-01-31] MEDS: SODIUM BICARBONATE 50 MEQ IV ×2 (12:10→12:14)
[2024-01-31] MEDS: ADRENALIN 1 MG/10 ML IV ×2 (12:10→12:12)
[2024-01-31 12:16] LABS: Glucose - Point of Care 243 mg/dl (70-99)
--- NOTE | 2024-01-31 12:32 | ED TECH ---
ED TRAUMA ALERT was called #[id number]# @12:27 pm .Cat Scan/ Lab Notified.
[2024-01-31 12:37] LABS: % Basophils 0.1 % (0-2); % Immature Granulocytes 2.2 % (0-0.5); % Lymphocytes 18.7 % (20.5-51.1); % Monocytes 2.7 % (1.7-9.3); % Neutrophils 76.3 % (42.2-75.2); Absolute Immature Granulocytes 0.2 10^3/uL (0-0.05); Absolute Monocytes 0.3 10^3/uL (0.1-0.6); Hematocrit 29.4 % (39.0-52.0); Hemoglobin 9.2 g/dL (13.0-18.0); Mean Corp Hgb Conc. 31.3 g/dL (33.0-37.0); Mean Corpuscular Hgb 32.4 pg (27.0-31.0); Mean Corpuscular Volume 103.5 fL (80.0-94.0); Mean Platelet Volume 11.4 fL (7.4-10.4); Nucleated Red Blood Cells % 0.2 % (-); Platelet Count 133 10^3/uL (130-400); Red Blood Cell Count 2.84 10^6/uL (4.70-6.10); Red Cell Dist. Width 17.8 % (11.5-14.5); White Blood Cell Count 10.4 10^3/uL (4.8-10.8)
[2024-01-31 12:51] LABS: APTT 35.3 Sec (23.4-35.0); INR 2.83; PT 29.7 Sec (11.4-14.6)
[2024-01-31 12:55] LABS: ALT (SGPT) 29 U/L (0-50); AST (SGOT) 87 U/L (17-59); Albumin 2.5 g/dl (3.5-5.0); Alkaline Phosphatase 217 U/L (38-126); Blood Urea Nitrogen 54 mg/dl (9-20); Calcium 8.5 mg/dl (8.4-10.2); Carbon Dioxide 24 mmol/L (22-30); Chloride 103 mmol/L (98-107); Glucose 249 mg/dl (70-99); Potassium 4.2 mmol/L (3.5-5.1); Sodium 135 mmol/L (135-145); Total Bilirubin 1.4 mg/dl (0.2-1.3); Total Protein 4.9 g/dl (6.3-8.2); Triglycerides 73 mg/dl (10-149); eGFR 24.28
[2024-01-31 13:00] LABS: NT-proBNP 26500 pg/ml; Troponin I 0.027 ng/ml
--- NOTE | 2024-01-31 13:11 | W.PN.UPDATE ---
Update Note
Progress Note Update
73-year-old gentleman with severe ischemic cardiomyopathy with LVEF of 10%, who had discharged this morning after hospitalization for acute on chronic heart failure and was noted to be in cardiac arrest soon after his discharge and was brought back
to the ER. He has BiV ICD in place. Patient's rhythm was normal sinus rhythm and was not shocked by the device and was noted to be PEA arrest.
He was resuscitated in the field and has adequate pulse and blood pressure by the time of arrival to the ER. He was intubated and is being admitted to the ICU.
Patient is swelling down with advanced heart failure. He has had VT ablation done back in 2019. No significant ventricular tachycardia noted since then. He had BiV DOG LICENSER implantation and March 2022. He remained stable for few years now but is now
getting advanced heart failure with difficult to rule treat heart failure.
Currently he is intubated but is already breathing. I expect his intubation to be short duration and likely extubation over the weekend. Unclear of his reason for cardiac arrest.
Right heart cath to estimate the cardiac output and possible need for inotropic agents. Plan for right heart cath on Friday based on how he progresses over the weekend.
CCT 35 minutes
--- NOTE | 2024-01-31 13:16 | ED.GENMED ---
History of Present Illness
General
Chief Complaint: CODE
Source: records and ambulance crew
Exam Limitations: clinical condition
Time Seen by Provider: 01/31/24 12:26
Nursing documentation reviewed up to this point in time: agreed with
Travel History
Have you had any contact with someone who has COVID-19?: Unable to Answer
Do you have any symptoms of coronavirus? Fever > 100 degrees, chills, cough, shortness of breath, sore throat, loss of taste or smell, muscle aches, or headache?: Unable to Answer
History of Present Illness
History of Present Illness:
73-year-old male with an extensive medical history most notably CHF with severely reduced ejection fraction (10 to 15%), cardiomyopathy, CAD who presents to the emergency department via EMS in cardiac arrest. Patient was notably just admitted to
[facility] 01/28 until just this morning (discharged about 2 hours prior to arrival) for CHF exacerbation. He presents in cardiac arrest today; per EMS they received a call the patient was found down in the parking lot at [facility] by bystander.
Unknown downtime. On their arrival he was pulseless and apneic but warm. ACLS started patient received 24 minutes of ACLS in the field including multiple rounds of epinephrine. Initial rhythm was PEA per EMS and patient was persistently PEA with
no shockable rhythms in the field. He was intubated in the field. He arrives with an 18-gauge IV in the right AC.
Past History
Past History
ED Past Medical History: Arrthythmia (Atrial fibrillation), CAD, CHF, HTN, Hypercholesterolemia, NIDDM, HI, Valvular disease, Hypothyroidism and Other (Ischemic cardiomyopathy, dual-chamber pacemaker)
ED Past Surgical History: Other (ICD)
Social History
Tobacco: Former smoker
Alcohol: None
Drug: None
Personal: Other
Living: with family
Employment: Other
Family History
Family History: CAD
Review of Systems
Review of Systems
Unable to obtain full review of systems at this time due to: intubated
All Other Systems: Not applicable
Phy Exam
Physical Exam
Physical Exam:
General: Arrives with CPR in progress unresponsive
Head: Normocephalic, occipital head laceration 1 to 2 cm
Eyes: Conjunctiva normal, pupils 3 mm symmetric and sluggishly reactive bilaterally
Throat: Intubated
Neck: Trachea midline; cervical collar in place
Lungs: Bilateral breath sounds present
Heart: Pulseless with CPR in progress
Abd: Mildly distended
Neuro: Unresponsive
Skin: Occipital laceration, right forearm skin tear
Extremities: Pulseless, distal extremities, skin tear right forearm
Scores
Heart Failure Risk
Heart Failure Risk Score: Not Applicable
Heart Score for Chest Pain Patients
STEMI patient?: Not applicable
Withdrawal Assessment of Alcohol
Withdrawal Assessment Completed?: Not applicable
Course
Orders/Labs/Results
Orders:
Orders
01/31/24 12:09
EPINEPHrine [Adrenalin 1 mg/10 ml] 1 mg IV NOW STA
01/31/24 12:10
Calcium CHLORIDE [Calcium Chloride 10% Syringe] 500 mg IV NOW STA
Sodium Bicarbonate 50 meq IV NOW STA
01/31/24 12:12
EPINEPHrine [Adrenalin 1 mg/10 ml] 1 mg IV NOW STA
01/31/24 12:14
Sodium Bicarbonate 50 meq IV NOW STA
01/31/24 12:21
Electrocardiogram (*1) Urgent
Reason for Study: Other
Other Reason for Exam: Respiratory Distress
CT Head W/o Iv Contrast Urgent
Comment:
Reason For Exam: trauma
Cardiac Monitoring- Treatment ONCE
EKG- Treatment ONCE
IV Insert/Care/Rem.- Treatment PRN
CR Chest Portable - 1 View Urgent
Comment:
Reason For Exam: respiratory distress
Reason Study Needs to be Portable: Patient Unstable
O2 Therapy [RESP] Urgent
Titrate/Wean O2 to maintain O2 sat greater than (%): 93
Special Instructions: TO MAINTAIN CONTINUOUS O2 SATS >/= 93%
Pulse Ox/cont/shift [RESP] Urgent
Quantity: 1
Special Instructions: continuous pulse ox
01/31/24 12:22
CT Cervical Spine W/o Iv Contr Urgent
Comment:
Reason For Exam: trauma
CT Chest/abd/pel W Iv Cont Urgent
Comment:
Reason For Exam: trauma
01/31/24 12:28
Smith Placement- Treatment ONCE
Reason for insertion: I&O's Critical Care
01/31/24 12:29
Complete Blood Count/With Diff Urgent
Comprehensive Metabolic Panel Urgent
NT-proBNP Urgent
PTT Urgent
Prothrombin Time Urgent
Triglycerides Routine
Comment: baseline levels with propofol infusion
Troponin I Urgent
FentaNYL 1,000 MCG/100 ML [Sublimaze] 1,000 mcg in 100 ml IV NOW
Indication:: Light Sedation
Begin Infusion:: Now
Goal:: pain score </= 1, CPOT 0-2
Maximum dose in mcg/hr:: 300
Continue currently infusing dose and titrate:: Yes
Titration Instructions:: Titrate every 30 minutes if patient exhibits signs of pain or discomfort
Titration Instructions:: (pain score >/= 2, CPOT >/= 3).
Titration Instructions:: Administer bolus dose and increase infusion by 25 mcg/hr.
Taper Instructions:: If pain score at goal for 4 consecutive hours (pain score </= 1, CPOT 0-2)
Taper Instructions:: decrease infusion by 50 mcg/hr every 2 hours.
Taper Instructions:: When dose </= 50 mcg/hr may turn infusion off and consider PRN
Taper Instructions:: intermittent bolus doses only.
Over-sedation Instructions:: If CPOT 0-2 (goal) and RASS -3 to -5 (below goal) decrease sedative by 50%
Over-sedation Instructions:: first. If pain score remains at goal and RASS remains below goal in 1 hour,
Over-sedation Instructions:: decrease opioid infusion by 50%.
Notify provider:: immediately if pt exhibits: chest wall rigidity, hemodynamic instability,
Notify provider:: agitation/pain despite maximum dosing, pain when RASS below goal.
Additional Instructions:: Patient MUST be mechanically ventilated.
Fentanyl Citrate/Pf [Sublimaze] 50 mcg IV [id number] PRN
Fentanyl Citrate/Pf [Sublimaze] 75 mcg IV NOW STA
Propofol 1,000,000 Mcg/100 ml [Diprivan] 1,000,000 mcg in 100 ml IV NOW
Indication:: Light Sedation
Begin Infusion:: Now
Goal:: RASS 0 to -2
Maximum dose in mcg/kg/min:: 50
Initial dose based on RASS:: Yes
If RASS is:: +1 or pt hemodynamically unstable (SBP < 90mmHg), initiate at 10 mcg/kg/min
If RASS is:: +2, initiate at 20 mcg/kg/min
If RASS is:: greater than or equal to +3, initiate at 30 mcg/kg/min
Titration Instructions:: Titrate by 5-10 mcg/kg/min every 5 minutes until RASS 0 to -2 achieved.
Taper Instructions:: If RASS is at or below goal for 4 consecutive hours decrease infusion by
Taper Instructions:: 5-10 mcg/kg/min every 2 hours to off.
Over-sedation Instructions:: If CPOT 0-2 (at goal) AND RASS -3 to -5 (below goal) decrease sedative by
Over-sedation Instructions:: 50% first. If pain score remains at goal and RASS remains below goal in
Over-sedation Instructions:: 1 hour, decrease opioid infusion by 50%.
Notify provider:: immediately if patient exhibits signs/symptoms of propofol-related
Notify provider:: infusion syndrome.
Additional Instructions:: Patient MUST be mechanically ventilated and MUST receive analgesia.
01/31/24 12:34
IV Insert/Care/Rem.- Treatment PRN
Interrogate Pacemaker- Treatment ONCE
Vital Signs- Treatment ONCE
Frequency: Hourly
Pulse Ox/cont/shift [RESP] Stat
Quantity: 1
01/31/24 13:04
Furosemide [Lasix] 40 mg IV NOW STA
01/31/24 13:07
CARDIOLOGY CONSULT Urgent
Consulting Provider: Denny Obrien
Was physician already notified: Yes
01/31/24 13:12
NORepinephrine 4 MG/250 ML [Levophed] 4 mg in 250 ml IV NOW
Initial dose in mcg/min, then titrate:: 2
Titrate to keep:: MAP > 65 mmHg
Titrate by mcg/min:: 1-2 mcg/min
Frequency of titrations (minutes):: 5
Maximum dose in ICU in mcg/min:: 30
Maximum dose in IMU in mcg/min:: 8
Maximum dose in IVU in mcg/min:: 4
Begin to taper infusion when:: Remained at goal for 4hrs
Taper by mcg/min:: 1-2 mcg/min
Frequency of taper (minutes) if patient maintains goal:: 30
Taper to off?: Yes
If infusion off & no longer maintaining goal:: Contact Provider
Tetanus/Diphth/Acelpertussis [Adacel] 0.5 ml IM .ONCE ONE
01/31/24 13:17
ABG [Arterial Blood Gas] Urgent
%Oxygen/Room Air: 80s
01/31/24 13:27
Urinalysis Reflex To Culture Urgent
Date Specimen was Collected: 01/31/24
Time Specimen was Collected: 13:26
Abnormal Lab Results
01/31/24 01/31/24 01/31/24
12:15 12:29 13:17
RBC 2.84 L 10^6/uL
(4.70-6.10)
Hgb 9.2 L g/dL
(13.0-18.0)
Hct 29.4 L %
(39.0-52.0)
MCV 103.5 H fL
(80.0-94.0)
MCH 32.4 H pg
(27.0-31.0)
MCHC 31.3 L g/dL
(33.0-37.0)
RDW 17.8 H %
(11.5-14.5)
MPV 11.4 H fL
(7.4-10.4)
Abs Immat Gran (auto) 0.2 H 10^3/uL
(0-0.05)
Absolute Neuts (auto) 8.0 H 10^3/uL
(1.4-6.5)
Immature Gran % 2.2 H %
(0-0.5)
Neutrophils % 76.3 H %
(42.2-75.2)
Lymphocytes % 18.7 L %
(20.5-51.1)
PT 29.7 H Sec
(11.4-14.6)
APTT 35.3 H Sec
(23.4-35.0)
pO2 374 H mmHg
(83-108)
ABG O2 Sat (Measured) 99.7 H %
(94-98)
BUN 54 H mg/dl
(9-20)
Creatinine 2.7 H mg/dL
(0.7-1.3)
Glucose 249 H mg/dl
(70-99)
Total Bilirubin 1.4 H mg/dl
(0.2-1.3)
AST 87 H U/L
(17-59)
Alkaline Phosphatase 217 H U/L
(38-126)
Total Protein 4.9 L g/dl
(6.3-8.2)
Albumin 2.5 L g/dl
(3.5-5.0)
POC Glucose 243 H mg/dl
(70-99)
01/31/24 12:29
01/31/24 12:29
Vital Signs
Initial and Last Documented VS:
Initial Vital Signs
Temp
36.3 C
01/31/24 12:06
Last Documented Vital Signs
Temp Pulse Resp BP Pulse Ox
36.3 C 70 17 83/63 100
01/31/24 12:06 01/31/24 13:45 01/31/24 13:45 01/31/24 13:45 01/31/24 13:45
MDM/Problems Addressed
Differential Diagnosis Includes:
Differential diagnosis for cardiac arrest is wide includes but not limited to: Acute HI, cardiac dysrhythmia, cardiogenic shock, traumatic head injury with herniation, electrolyte derangement, pneumothorax, cardiac tamponade, pulmonary embolism,
sepsis with shock and arrest, traumatic injury with hemorrhage and arrest
MDM/Problems Addressed:
73-year-old male presents via EMS in cardiac arrest�was just discharged from admission for CHF. He was found down on the ground unknown downtime prior to EMS arrival received 24 minutes of ACLS in the field and multiple rounds of epi, was intubated
in the field. Persistently PEA in the field with no shockable rhythms. On arrival placed a right pretibial IO, ET tube confirmed with end-tidal CO2. Initial rhythm on arrival here PEA. He was given IV epinephrine, 1 amp of D50, 1 amp of calcium
chloride, 1 amp of sodium bicarbonate on arrival. Received an additional round of epinephrine and bicarb and after about 10 minutes of CPR we obtained ROSC. Heart rate in the 80s appears paced on the monitor, blood pressure 109/82 after ROSC
obtained. He did seem to have some spontaneous respirations was overbreathing the ventilator. Usual labs sent off including a CBC, CMP, troponin, BNP, coags. Will send an ABG as well. Stat portable chest x-ray reviewed by me no pneumothorax, ET
tube in appropriate position, significant pulmonary edema. Will place an OG tube and Smith catheter. Discussed with cardiology for assessment. EKG postarrest shows paced rhythm no change from prior. ED trauma alert was called to complete trauma
assessment including CT of the head, cervical spine, chest/abdomen/pelvis. Admit pending initial assessment.
Initial labs reviewed CBC shows stable anemia at 9.2. CMP shows creatinine of 2.7 also stable. Bicarb 24. His glucose is 249 with no signs of DKA. His troponin is actually negative status post arrest and CPR. His BNP is 26,000. CT head
reviewed by me shows no clear hemorrhage, awaiting final radiology report on CT scans. He does have significant pulmonary edema will dose with Lasix 40 mg IV.
Patient becoming increasingly hypotensive on reassessment starting on Levophed. His ABG returned back shockingly normal with a pH of 7.36. Awaiting results of imaging for admission.
CT head negative for any acute traumatic injury, CT cervical spine negative. Case discussed with hospitalist for ICU admission.
Chronic conditions affecting care:
CHF
*Radiology
Radiology exam reviewed: preliminary read by ED provider and radiology read reviewed
*Pulse Oximetry
Patient hypoxic: no
*EKG
Interpreted by ED Provider?: Yes
Heart Rate: 78
Rate: normal
Rhythm: av sequential
*Critical Care Note
Total Time (30-74mins, 75-104mins- exclusive of procedures): 57
comment:
Critical care statement: A total of 57 minutes of critical care time was provided for this patient. This includes management of unstable vital signs, evaluation of the patient at bedside, frequent reassessment, discussion with
consultants/hospitalist, and review of pertinent medical records. This time was separate from time utilized to perform any aforementioned documented procedures
Data Reviewed
Review of Other/Old Records Reveals: Labs, Records, Progress Notes and Discharge Summary
Source: records and ambulance crew
Patient Management
Discussion with other providers: Hospitalist (Discussed with hospitalist) and High Lighter (Discussed with cardiology)
Escalation/DeEscalation of care consider admission/obs:
Admission indicated�ICU
ED Attending Note
-
Portions of this chart may have been created with voice recognition software.� Occasional wrong word or��sound alike� substitutions may have occurred due to the inherent limitations of voice recognition software.
Discharge Plan
Departure
Patient Disposition: Admit
Date of Disposition: 01/31/24
Time of Disposition: 13:59
Admit to doctor: Eva
Presentation/result/management discussed w/ accepting MD/DO: Hospitalist
Discharge Problem:
Acute exacerbation of CHF (congestive heart failure), Cardiac arrest, Cardiogenic shock
Prescriptions:
No Action
atorvastatin 40 MG tablet
40 mg PO HS
carvedilol 6.25 MG tablet
6.25 mg PO BID
lorazepam 0.5 MG tablet
0.5 mg PO .SEE BELOW PRN (Reason: anxiety)
Patient Comments:
01/29/2024, pt. filled this med. on 01/09/2024 for 60 tablets according to PDMP. Prescribed one tablet BIDPRN; however, pt. states to be taking 2 tablets HSPRN.
cyanocobalamin (vitamin B-12) 1,000 MCG tablet
1,000 mcg PO BID
allopurinol 100 MG tablet
100 mg PO BID
calcitriol 0.25 MCG capsule
0.25 mcg PO DAILY
amiodarone [Pacerone] 200 MG tablet
200 mg PO BID
magnesium oxide 500 MG tablet
500 mg PO DAILY
Eliquis 5 MG tablet
5 mg PO BID
aspirin 81 mg Tablet,Delayed Release (Dr/Ec)
81 mg PO DAILY
levothyroxine 88 mcg Tablet
88 mcg PO DAILY AT 0700
tamsulosin 0.4 mg Capsule
0.4 mg PO HS
Patient Comments:
01/29/2024, took this morning b/c missed last night's dose per pt.
diphenhydramine-acetaminophen [Tylenol PM Extra Strength] 25-500 mg Tablet
2 tab PO HS PRN (Reason: sleep)
cholecalciferol (vitamin D3) 25 mcg (1,000 unit) Tablet
25 mcg PO BID
Blink Gel Tears 0.25 % Drops,Gel
1 drp ophthalmic (eye) BID
Rx Instructions:
01/29/2024, both eyes.
potassium chloride [Klor-Con M20] 20 MEQ tablet,ER particles/crystals
20 meq PO BID
trazodone 50 mg Tablet
50 mg PO HS PRN (Reason: sleep)
furosemide 80 mg Tablet
80 mg PO BID@0800,1600
albuterol sulfate 90 mcg/actuation Hfa Aerosol Inhaler
1 puff INHALATION R Q4HPRN PRN (Reason: sob)
PreserVision AREDS 2,148 mcg-113 mg-45 mg-17.4mg Tablet
1 tab PO BID
hydralazine 25 mg Tablet
25 mg PO BID Qty: 60 0RF
prednisone 10 mg tablet
10 mg PO DIRECTED Qty: 12 0RF
Rx Instructions:
30mg daily * 3 days and cut it by 10mg every 2 days and stop once done with 10mg tabs
pantoprazole [Protonix] 40 mg tablet,delayed release (DR/EC)
40 mg PO DAILY Qty: 7 0RF
Rx Instructions:
take it while on steroids
Referrals:
UNKNOWN,NO INTERVIEW [Family Provider] -
Interventions
Interventions:
ED- Fall Risk Assessment Last Done: 01/31/24 12:15
ED- Cardiac Assessment Last Done: 01/31/24 12:15
ED- Pulmonary Assessment Last Done: 01/31/24 12:15
[2024-01-31] MEDS: SUBLIMAZE 75 MCG IV (13:17)
[2024-01-31] MEDS: LASIX 40 MG IV (13:18)
[2024-01-31] MEDS: LEVOPHED 250 IV (13:19)
[2024-01-31 13:26] LABS: B.E. -3.2 mmol/L; O2 Saturation % 99.7 % (94-98); PCO2 39 mmHg (35-48); PO2 374 mmHg (83-108); pH 7.36 (7.35-7.45)
[2024-01-31] MEDS: SUBLIMAZE 100 IV (13:39)
[2024-01-31] MEDS: ADACEL 0.5 ML IM (13:45)
[2024-01-31 14:14] LABS: Urine Albumin Negative (Neg - Trace); Urine Bilirubin Negative (Negative); Urine Character Slightly Cloudy (Clear); Urine Color Yellow; Urine Glucose Negative (Negative); Urine Ketone Negative (Negative); Urine Leukocyte 2+ (Negative); Urine Nitrite Negative (Negative); Urine Occult Blood 3+ (Negative); Urine Specific Gravity 1.015 (<1.030); Urine Urobilinogen Negative (Neg - 1+)
[2024-01-31 14:44] LABS: Urine Mucus Few
[2024-01-31 14:47] LABS: Urine Red Blood Cell 60-70 /HPF (0-2); Urine White Cell 90-100 /HPF (0-5)
[2024-01-31 14:48] LABS: Urine Bacteria Few (Negative)
--- NOTE | 2024-01-31 15:00 | HPS.HSE ---
Addendum entered and electronically signed by Ramakrishna Villalobos MD 01/31/24 15:30:
Left message to brother Theodore Coronel on his voicemail.He is listed as set up person in chart.
Original Note:
Family Physician
-
Family Physician: NO INTERVIEW UNKNOWN
Chief Complaint
-
out of hospital cardiac arrest
History of Present Illness
Patient was admitted to [facility] 01/29/2024 to 01/31/2024 for episode of congestive heart failure. Was seen by partner management consultant and was taken care of by me.
In fact he was discharged home this morning at 10:00 after he was stable.
Unfortunately he had a cardiac arrest after discharge. He was down in field of unknown downtime. Apparently he was in PEA code on EMS arrival. He got intubated in the field. According to the chart had 24 hours of CPR by EMS. He was still in PEA
when he arrived and 10 minutes of CPR with return of circulation.
The mayo CT-head CT showed acute intracranial normality, cervical spine CT showed no evidence of fracture, and CT chest abdomen pelvis showed no pneumothorax, moderate pleural effusion bilaterally, mild patchy parenchymal opacities. It also showed
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 Also shows advanced bilateral hydroureteronephrosis without evidence of obstructing calculus and is condition prolonged nephrogram with
delayed excretion of contrast.
He was admitted couple of days ago because of congestive heart failure. He has ischemic cardiomyopathy with persistently low EF of 10 to 15%. He has a BiV ICD. There was compliance issues before coming into the hospital. He also has significant
personal losses last week. He lost 18 pounds of weight and was discharged home on oral Lasix. During the hospital stay he was also wheezy and control of bronchitis and was given steroids.
His partner management consultant on recent visit felt that he is in a different phase and is declining. Patient understood that his life is nearing the end and he told partner management consultant doubt he will make it to the end of 2023 which unfortunately was felt to be correct.
Patient currently intubated. No history is available from patient.
Medical History
Past Medical History
Past Medical History: Reports Arrhythmia (Paroxysmal atrial fibrillation), CHF, HTN and Renal Failure (Stage IV)
Past Surgical History: Reports Cardiac (BiV ICD)
Social History
Tobacco: Non-smoker
Alcohol: None
Drug: None
Family History
Family History: Not pertinent
Allergies / Home Medications
Allergies reflects when Allergies were last updated in [employer].
Home Medications with original date entered in [employer]
Allergy/Medication List:
Allergies
Allergy/AdvReac Type Severity Reaction Status Date / Time
Cephalosporins Allergy Rash Verified 01/31/24 12:17
moxifloxacin HCl Allergy Hives Verified 01/31/24 12:17
[From Avelox]
penicillin V Allergy Hives Verified 01/31/24 12:17
Penicillins Allergy Hives Verified 01/31/24 12:17
Home Medications
atorvastatin 40 mg tablet 40 mg PO HS High cholesterol 01/30/12
carvedilol 6.25 mg tablet 6.25 mg PO BID Blood pressure 01/30/12
lorazepam 0.5 mg tablet 0.5 mg PO .SEE BELOW PRN anxiety 01/30/12
allopurinol 100 mg tablet 100 mg PO BID GOUT 05/26/19
calcitriol 0.25 mcg capsule 0.25 mcg PO DAILY Kidney Disease 05/26/19
cyanocobalamin (vitamin B-12) 1,000 mcg tablet 1,000 mcg PO BID Supplement 05/26/19
amiodarone 200 mg tablet (Pacerone) 200 mg PO BID Arrhythmia 08/28/20
apixaban 5 mg tablet (Eliquis) 5 mg PO BID Blood clot prevention/tx 04/18/22
magnesium oxide 500 mg PO DAILY Electrolyte Repletion 04/18/22
aspirin 81 mg tablet,delayed release 81 mg PO DAILY Blood Clot Prevention/Tx 12/15/23
cholecalciferol (vitamin D3) 25 mcg (1,000 unit) tablet 25 mcg PO BID supplement 12/15/23
diphenhydramine 25 mg-acetaminophen 500 mg tablet (Tylenol PM Extra Strength) 2 tab PO HS PRN sleep 12/15/23
levothyroxine 88 mcg tablet 88 mcg PO DAILY AT 0700 thyroid 12/15/23
polyethylene glycol 400 0.25 % eye gel drops (Blink Gel Tears) 1 drp ophthalmic (eye) BID Eye Condition 12/15/23
tamsulosin 0.4 mg capsule 0.4 mg PO HS Urinary Issue 12/15/23
potassium chloride 20 mEq tablet,extended release(part/cryst) (Klor-Con M) 20 meq PO BID Electrolyte Repletion 12/16/23
albuterol sulfate 90 mcg/actuation aerosol inhaler 1 puff inhalation R Q4HPRN PRN sob 01/29/24
furosemide 80 mg tablet 80 mg PO BID@0800,1600 Fluid Retention/Swelling 01/29/24
trazodone 50 mg tablet 50 mg PO HS PRN sleep 01/29/24
vitamins A,C,P-jcgn-fufglc 2,148 mcg-113 mg-45 mg-17.4 mg tablet (PreserVision AREDS) 1 tab PO BID Supplement 01/29/24
hydralazine 25 mg tablet 25 mg PO BID #60 tabs 01/31/24
pantoprazole 40 mg tablet,delayed release (Protonix) 40 mg PO DAILY #7 tabs 01/31/24
prednisone 10 mg tablet 10 mg PO DIRECTED #12 tabs 01/31/24
Review of Systems
-
A 12 point ROS was completed and negative except as noted: Yes
Physical Exam
Vital Signs
Vital Signs
Temp Pulse Resp BP Pulse Ox
97.3 F 70 0 90/68 100
01/31/24 12:06 01/31/24 14:55 01/31/24 14:55 01/31/24 14:55 01/31/24 14:55
Physical Exam
General: No Apparent Distress
Respiratory: Clear (Anteriorly)
Cardiac: S1/S2 and Regular Rhythm (Paced rhythm on the monitor)
GI: Soft and Non Distended
Neuro: Other (Unresponsive. Patient on fentanyl)
Psych: Calm
Laboratory Results
-
01/31/24 12:29
01/31/24 12:29
Laboratory Results
PT 29.7 Sec (11.4-14.6) H 01/31/24 12:29
INR 2.83 01/31/24 12:29
APTT 35.3 Sec (23.4-35.0) H 01/31/24 12:
pH 7.36 (7.35-7.45) 01/31/24 13:17
pCO2 39 mmHg (35-48) 01/31/24 13:17
pO2 374 mmHg (83-108) H 01/31/24 13:17
HCO3 22.0 mmol/L (21-28) 01/31/24 13:17
Total Bilirubin 1.4 mg/dl (0.2-1.3) H 01/31/24 12:29
AST 87 U/L (17-59) H 01/31/24 12:29
ALT 29 U/L (0-50) 01/31/24 12:29
Alkaline Phosphatase 217 U/L (38-126) H 01/31/24 12:29
Troponin I 0.027 ng/ml 01/31/24 12:29
Data Reviewed
-
CT Scan: Report Reviewed by me (CT abdomen pelvis and chest; CT head and cervical spine)
Lab Data: Labs Reviewed by me
Impression/Plan
-
[id number] cardiac arrest-noted to be PEA arrest-now ROSC. Reviewed by cardiology-rhythm normal sinus rhythm and was not shocked by the device and was noted to be in the PEA arrest. Admit to ICU.
Ischemic cardiomyopathy with EF of 10 to 15% with recent episode of heart failure and noted to be in heart failure on post CPR CXR. Suspect recurrent heart failure episode secondary to cardiac arrest. His weight was down 18 pounds prior to
discharge. Resume Lasix 80 mg IV twice daily. Cardiology following. Admitting troponins normal. Elevated BNP noted. Cardiology input about right heart catheterization noted. He is on Coreg which will hold because of hypotension. He was put on
hydralazine this visit which I would hold because of hypotension
Chronic kidney disease stage IV-creatinine 2.7 better than morning. No hyperkalemia or acidosis. Follow creatinine closely with diuresis.
Vent dependent respiratory failure-patient got intubated as part of code. Continue with vent support and wean oxygen as able. Prior to discharge she was on room air.
Recent suspected possible bronchitis-was put on steroid taper which I would reassume.
Osteoblastic lesions with rib fractures. Bone fracture and L3 fracture noted. I am not aware about any malignancy during his last visit. He also has Moderate to advanced bilateral hydroureteronephrosis without evidence of obstructing calculus.
Suspicious for obstruction at the level of the ureterovesical junction.
Diminished and prolonged nephrogram with delayed excretion of contrast. Possibly on the basis of hypotension or obstructive uropathy.
Will consult urology in a.m.
Multiple rib fractures from CPR. Patient currently intubated. No pneumothorax. Follow closely for any complications.
Hypertension-hold antihypertensives because of hypotension.
Paroxysmal atrial fibrillation-continue with amiodarone and anticoagulation.
Full code
--- NOTE | 2024-01-31 15:14 | CON.INTV ---
Consultation
Consultation Request
Date/Time Consultation Requested: 01/31/24
Date/Time Consultation Performed: 01/31/24
Performing Provider: Dasha
Reason for Consultation: ICU
Medical History
-
History of Present Illness:
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 Patient was found down in the
parking lot of [facility] by bystander. There is unknown amount of time patient was down. He was pulseless on arrival, ACLS and intubation performed by EMS. Received 24 minutes of ACLS in the field with multiple rounds of epinephrine, still in
cardiac arrest upon arrival to ER, underwent multiple rounds of epinephrine in ER, with ROSC at roughly 35 minutes total. He was noted to be spontaneously breathing on vent. He is currently maintained on Levophed at 2 mcg, fentanyl. He was
notably moving as well post cardiac arrest.
TTM evaluation likely excluded based on responsiveness post arrest, hemodynamic instability.
Last admission records reviewed, he was told his cardiomyopathy was basically end stage. This is his 3rd admissions in the past 3 months for AE CHF.
Past Medical History
Past Medical History: Other (see list below)
Social History
Tobacco: Non-smoker
Alcohol: None
Drug: None
Family History
Family History: Reviewed & Not Pertinent
Allergies / Home Medications
Allergies
Allergy/AdvReac Type Severity Reaction Status Date / Time
Cephalosporins Allergy Rash Verified 01/31/24 12:17
moxifloxacin HCl Allergy Hives Verified 01/31/24 12:17
[From Avelox]
penicillin V Allergy Hives Verified 01/31/24 12:17
Penicillins Allergy Hives Verified 01/31/24 12:17
Home Medications
Medication Instructions Recorded Confirmed Last Taken Type
atorvastatin 40 mg tablet 40 mg PO HS High cholesterol 01/30/12 01/31/24 01/28/24 History
carvedilol 6.25 mg tablet 6.25 mg PO BID Blood pressure 01/30/12 01/31/24 01/29/24 History
lorazepam 0.5 mg tablet 0.5 mg PO .SEE BELOW PRN 01/30/12 01/31/24 2 Weeks Ago History
anxiety ~12/01/23
allopurinol 100 mg tablet 100 mg PO BID GOUT 05/26/19 01/31/24 01/29/24 History
calcitriol 0.25 mcg capsule 0.25 mcg PO DAILY Kidney Disease 05/26/19 01/31/24 01/28/24 History
cyanocobalamin (vitamin B-12) 1,000 mcg PO BID Supplement 05/26/19 01/31/24 01/29/24 History
1,000 mcg tablet
amiodarone 200 mg tablet (Pacerone) 200 mg PO BID Arrhythmia 08/28/20 01/31/24 01/29/24 History
apixaban 5 mg tablet (Eliquis) 5 mg PO BID Blood clot 04/18/22 01/31/24 01/29/24 History
prevention/tx
magnesium oxide 500 mg PO DAILY Electrolyte 04/18/22 01/31/24 01/29/24 History
Repletion
aspirin 81 mg tablet,delayed 81 mg PO DAILY Blood Clot 12/15/23 01/31/24 01/29/24 History
release Prevention/Tx
cholecalciferol (vitamin D3) 25 25 mcg PO BID supplement 12/15/23 01/31/24 01/29/24 History
mcg (1,000 unit) tablet
diphenhydramine 25 2 tab PO HS PRN sleep 12/15/23 01/31/24 01/28/24 History
mg-acetaminophen 500 mg tablet
(Tylenol PM Extra Strength)
levothyroxine 88 mcg tablet 88 mcg PO DAILY AT 0700 thyroid 12/15/23 01/31/24 01/29/24 History
polyethylene glycol 400 0.25 % eye 1 drp ophthalmic (eye) BID Eye 12/15/23 01/31/24 01/28/24 History
gel drops (Blink Gel Tears) Condition
tamsulosin 0.4 mg capsule 0.4 mg PO HS Urinary Issue 12/15/23 01/31/24 01/29/24 History
potassium chloride 20 mEq 20 meq PO BID Electrolyte Repletion 12/16/23 01/31/24 01/29/24 History
tablet,extended
release(part/cryst) (Klor-Con M)
albuterol sulfate 90 mcg/actuation 1 puff inhalation R Q4HPRN PRN sob 01/29/24 01/31/24 01/29/24 History
aerosol inhaler
furosemide 80 mg tablet 80 mg PO BID@0800,1600 Fluid 01/29/24 01/31/24 01/29/24 History
Retention/Swelling
trazodone 50 mg tablet 50 mg PO HS PRN sleep 01/29/24 01/31/24 1 Week Ago History
~01/22/24
vitamins A,C,J-swzv-ljzkjc 2,148 1 tab PO BID Supplement 01/29/24 01/31/24 01/29/24 History
mcg-113 mg-45 mg-17.4 mg tablet
(PreserVision AREDS)
hydralazine 25 mg tablet 25 mg PO BID #60 tabs 01/31/24 01/31/24 Unknown Rx
pantoprazole 40 mg tablet,delayed 40 mg PO DAILY #7 tabs 01/31/24 01/31/24 Unknown Rx
release (Protonix)
prednisone 10 mg tablet 10 mg PO DIRECTED #12 tabs 01/31/24 01/31/24 Unknown Rx
Review of Systems
-
Unable to Obtain full review of systems at this time due to: Acuity and Patient Intubation
Vitals / Labs / Diagnostic Testing
Vital Signs
Temp Pulse Resp BP Pulse Ox
97.3 F 70 16 91/68 100
01/31/24 12:06 01/31/24 15:10 01/31/24 15:10 01/31/24 15:10 01/31/24 15:10
Lab Data
01/31/24 12:29
01/31/24 12:29
Laboratory Results
01/31/24 01/31/24
12:29 13:17
PT 29.7 H
INR 2.83
APTT 35.3 H
pH 7.36
pCO2 39
pO2 374 H
HCO3 22.0
O2 Delivery Level
Diagnostic Testing:
Physical Exam
-
HEENT: Normocephalic, Anicteric and Moist Mucous Membranes
Cardiovascular: S1/S2 and Regular Rhythm
Respiratory: Rales, Non-Labored Respirations and Other (intubated)
GI: Soft, Non Distended and Non Tender
Neurology: Other (sedated/unresponsive on my exam)
Skin: Warm and Dry
General: Comfortable and Other (sedated/intubated)
Assessment
-
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 Patient was found down in the
parking lot of [facility] by bystander. There is unknown amount of time patient was down. He was pulseless on arrival, ACLS and intubation performed by EMS. Received 24 minutes of ACLS in the field with multiple rounds of epinephrine, still in
cardiac arrest upon arrival to ER, underwent multiple rounds of epinephrine in ER, with ROSC at roughly 35 minutes total. He is admitted to ICU for further management.
s/p cardiac arrest/PEA post CPR/ACLS
Intubation and MV for unresponsiveness/airway protection
End stage CM 10-15% EF, recent admission
Cardiogenic shock
Acute on chronic HFrEF
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
Chronic ICM EF 10-15%
Hx VT storm s/p ablation
BI-V ICD in place
CAD with hx stenting status post cardiac cath x 5
PAF
CKD
HLD
HTN
Gout
Diverticulosis
Secondary hyperparathyroidism
Weight loss
Cardiorenal syndrome
Candidal pharyngitis
Anal abscess 2016
Bilateral knee osteoarthritis
Right inguinal hernia s/p Robotic Asst Lap incarcerated RT hernia (LINHANNA) DH� � 01/27/23� �
Plan
s/p cardiac arrest with prolonged downtime
There was reported movement post resuscitation, will evaluate for TTM
This is likely excluded on the basis of hemodynamic instability, extreme cardiomyopathy
Pain/sedation: Fentanyl drip, will wean as tolerated
RASS goals: 0
Hemodynamically unstable, requiring pressors.
Requiring pressors: Currently maintained on Levophed at 2, may need inotrope
Cardiac history reviewed--end-stage cardiomyopathy, EF 10 to 15%
Well-known to cardiology service, continue Lasix
Moderate pleural effusion, can consider thoracentesis
Prior ECHO reviewed
Hold/Resume home meds per team
History of VT, monitor on telemetry
Intubated on mechanical ventilation post-code
Vent setting reviewed: AC 550/16/60/5
ABG reviewed and adequate
Prior history of lung disease: Former smoker, not known to have COPD
no prior PFTs for review
Supplemental O2 as indicated to maintain sats > 89%
CXR/CT reviewed indicating moderate bilateral pleural effusions
May consider thoracentesis if indicated
NPO, resume diet when able
Stocking Inspector recommendations
Aspiration precautions, HOB > 30 degrees
Speech therapy eval can be considered if at elevated risk
GI prophylaxis if indicated for mechanical ventilation >48 hours, prior history of GERD, stress ulcer formation in the critically ill
History of chronic kidney disease stage III
Creat at baseline
Possible obstructive uropathy on CT imaging, may need urology to see
Void trials
Follow urine output, critical I/Os
Replete electrolytes as needed
No signs/symptoms suspicious for infectious etiology at this time
Observe off antibiotics for now
Cultures sent/pending
Blood
Sputum
Urine
Follow fever trend, WBC count
CBC stable, no signs of bleeding or coagulopathy.
DVT prophylaxis as assessed based on risk, including mechanical SCDs
Can transfuse if indicated for Hb <7, plt < 10
INR 2.83
No prior h/o diabetes
Monitor accuchecks PRN/SS coverage if needed
H/o hypothyroidism, can continue on home synthroid dose
Prognosis overall poor, may need goals of care discussion with family
He is currently full code
We will follow
Diagnostic Data
Chest X-Ray: 01/31/24- Endotracheal tube tip approximately 4.5 cm above the denise. Findings highly suspicious for mild to moderate pulmonary edema.
01/29/24- Subtle blunting of the posterior costophrenic angle. Mild cardiomegaly. Mild vascular and slightly increased interstitial prominence is noted, as well has suggestion of subtle patchy acinar opacity, raising possibility of congestive heart
failure or volume overload. No pneumothorax.
01/12/24- 1. � Moderate to severe diffuse ground-glass opacity mixed with increased interstitial markings in both lungs which is much greater than 04/18/2022. Diagnostic possibilities are (1) acute interstitial and alveolar cardiogenic pulmonary edema
superimposed upon a chronic inflammatory interstitial pneumonitis or (2) acute inflammation from an inflammatory interstitial pneumonitis.
2. � New small bilateral pleural effusions.
3. � Mild cardiomegaly.
4. � Mild left deviation of the trachea which appears unchanged and could be secondary to a right-sided thyroid goiter or right paratracheal lymphadenopathy.
5. � Right-sided AICD in place.
CT Scan: CAP 01/31/24- Moderate bilateral pleural effusions. No pneumothorax. Mild patchy parenchymal opacities. Possible combination of chronic interstitial fibrotic changes, alveolitis, subtle pneumonia, or patchy alveolar edema. Mild mediastinal
adenopathy. Right-sided aortic arch. Nonspecific hazy stranding of the retroperitoneal fat superior to the pancreas and celiac artery. The pancreas is otherwise unremarkable. However, cannot entirely exclude possibility of edema related to adjacent
pancreatitis. Correlate with pancreatic enzymes.
Moderate to advanced bilateral hydroureteronephrosis without evidence of obstructing calculus. Suspicious for obstruction at the level of the ureterovesical junction. Diminished and prolonged nephrogram with delayed excretion of contrast. Possibly
on the basis of hypotension or obstructive uropathy. Minimal ascites. Mild diverticulosis. No evidence of acute diverticulitis.
Osteoblastic metastatic disease. Multiple multiple bilateral rib fractures. Incomplete sternal fracture. Nondisplaced right L3 transverse process fracture.
Echo: 12/16/23- Severely dilated LV with severely reduced systolic function. Estimated EF of 10-15%.�LAD and RCA territory hypokinesis and akinesis.�Normal right ventricular size and function.
Severe left atrial dilation.�Thickened and restricted leaflet motion with moderate mitral regurgitation.�Small anteriorly located pericardial effusion.�Compared to prior on August 28, 2020, LV function remains severely reduced.
PFT's:
Reports and relevant images were personally reviewed.
-----
Critical Care time 65 mins -- The patient is admitted for acute critical illness for the treatment of vital organ failure and/or prevention of further life-threatening conditions. Total care includes time spent in review of history, physical exam,
medications, hemodynamic/ventilator parameters, laboratory data, imaging and discussion with house staff, pharmacy, respiratory therapy, food safety technician, and nursing.
--- NOTE | 2024-01-31 16:22 | PTCARENOTE ---
Pt admitted to ICU bed 3363 from ED.
Pt unresponsive. Makes no purposeful movements. Myoclonic jerking. Pupils 1mm nonreactive. + corneal reflex. No gag. Fentanyl gtt
Vent A/C 16/550/40%/5. Lungs clear.
AV paced. +2 pitting pedal edema.
Blood tinged urine via conn.
[2024-01-31 16:34] LABS: Magnesium 2.8 mg/dl (1.6-2.3)
[2024-01-31 17:15] LABS: Troponin I 0.098 ng/ml
[2024-01-31] MEDS: SUBLIMAZE 50 MCG IV ×3 (17:33→22:32)
[2024-01-31] MEDS: DECADRON 4 MG IV (17:34)
[2024-01-31 18:37] LABS: Glucose - Point of Care 198 mg/dl (70-99)
--- NOTE | 2024-01-31 18:49 | PTCARENOTE ---
Increased myoclonic jerking causing frequent vent alarms. Fentanyl gtt titrated up. Levophed weaned off BP 92/67 (76) at this time.
DHT placed for med administrations. Awaiting xray for placement.
[2024-01-31] MEDS: REFRESH CELLUVISC GEL 1 DROPS BOTH EYES (19:51)
[2024-01-31] MEDS: KCL ELIXIR 20 MEQ TUBE (19:51)
[2024-01-31] MEDS: ELIQUIS 5 MG TUBE (19:51)
[2024-01-31] MEDS: PACERONE 200 MG TUBE (19:51)
[2024-01-31] MEDS: DIPRIVAN 100 IV (20:02)
[2024-01-31] MEDS: LIPITOR 40 MG TUBE (20:02)
--- NOTE | 2024-01-31 20:43 | PTCARENOTE ---
Assumed care of pt at 1900. Received pt intubated, #7.5 ETT, 23 at [facility], AC 16/550/40/5. Received pt on Fentanyl drip at 50mcg/hr. Pt displaying constant myoclonic jerking movements, when this happens vent will alarm high peak pressures in the 40s,
pt's SpO2 dropping to 87-88%, gaze deviated upwards, entire body will violently move. Propofol ordered and started at 20mcg/kg/min around 1999 and at this time (2044) myoclonic movements have mostly stopped except for when pt is stimulated. Prior to
adding Propofol, pt with + cough, no gag, no corneals, not withdrawing to painful stimuli, pupils 2mm bilaterally but no reaction to light. 100% AV paced on monitor with HR in low 70s. SpO2 currently 99%. After starting propofol, BP dropped to 60s
systolic (MAP 59), Levophed restarted at 2041 at 2mcg/min. Pt with hematuria, (light pink with occasional small clots noted), discussed with Adi DELUCA because pt due for a dose of Eliquis tonight, decision made to still give dose tonight. See
nursing shift assessment flowsheet for further shift assessment details.
[2024-01-31 20:44] LABS: Triglycerides 89 mg/dl (10-149)
[2024-01-31] MEDS: VERSED 5 MG IV ×2 (21:13→23:51)
[2024-01-31 23:19] LABS: Troponin I 0.133 ng/ml
[2024-01-31 23:55] LABS: Glucose - Point of Care 132 mg/dl (70-99)
[2024-02-01] VITALS (80 sets, daily range): BP systolic 63–120; BP diastolic 33–84; BMI 23.4
--- NOTE | 2024-02-01 00:12 | PTCARENOTE ---
Assessment unchanged, neurological assessment mostly the same, pupils still 2mm but are now sluggishly reactive, + cough but still no gag, unresponsive to any stimuli, including pain. Still with intermittent myoclonic jerking, at times sustained,
and when this happens pt will alarm high peak pressures, have tidal volumes <100 and SpO2 will drop to low 90s/high 80s (SpO2 normally 98-100%). Versed 5mg given x2 so far this shift, remains on Propofol which was increased to 30mcg/kg/min to help
with vent dyssynchrony 2/2 the violent myoclonic movements, and Fentanyl at 50mcg/hr. 100% AV paced, HR 69-73. Remains on Levophed, now at 6mcg/min to keep systolic BP <90.
[2024-02-01] MEDS: SUBLIMAZE 50 MCG IV (01:48)
[2024-02-01] MEDS: VERSED 5 MG IV (01:51)
--- NOTE | 2024-02-01 04:45 | PTCARENOTE ---
Addendum entered by Liliana Ward RN 02/01/24 06:16:
IO line removed from right tibia at around 0300, covered with 4x4.
Original Note:
0400 physical assessment and neuro assessment unchanged. Remains on Propofol and Fentanyl for sedation, remains on Levophed to maintain BP. 100% AV paced HR 70, maintaining SpO2 99-100% on same vent settings. CHG bath done and all linens changed,
wound care done to arms, see wound care documentation.
[2024-02-01 05:23] LABS: % Basophils 0.1 % (0-2); % Immature Granulocytes 0.5 % (0-0.5); % Lymphocytes 12.1 % (20.5-51.1); % Monocytes 5.9 % (1.7-9.3); % Neutrophils 81.4 % (42.2-75.2); Absolute Immature Granulocytes 0.1 10^3/uL (0-0.05); Absolute Lymphocytes 1.7 10^3/uL (1.2-3.4); Absolute Monocytes 0.8 10^3/uL (0.1-0.6); Absolute Neutrophils 11.4 10^3/uL (1.4-6.5); Hematocrit 27.8 % (39.0-52.0); Hemoglobin 9.1 g/dL (13.0-18.0); Mean Corp Hgb Conc. 32.7 g/dL (33.0-37.0); Mean Corpuscular Hgb 32.4 pg (27.0-31.0); Mean Corpuscular Volume 98.9 fL (80.0-94.0); Mean Platelet Volume 11.6 fL (7.4-10.4); Nucleated Red Blood Cells % 0 % (-); Platelet Count 146 10^3/uL (130-400); Red Blood Cell Count 2.81 10^6/uL (4.70-6.10)
[2024-02-01 05:45] LABS: B.E. 3.3 mmol/L; HCO3 26.5 mmol/L (21-28); O2 Saturation % 80.2 % (94-98); PCO2 34 mmHg (35-48)
[2024-02-01 05:46] LABS: PO2 49 mmHg (83-108)
[2024-02-01 05:48] LABS: ALT (SGPT) 46 U/L (0-50); AST (SGOT) 58 U/L (17-59); Albumin 2.6 g/dl (3.5-5.0); Alkaline Phosphatase 271 U/L (38-126); Blood Urea Nitrogen 65 mg/dl (9-20); Calcium 8.4 mg/dl (8.4-10.2); Carbon Dioxide 27 mmol/L (22-30); Chloride 105 mmol/L (98-107); Estimated Creatinine Clearance 26 ml/min; Glucose 127 mg/dl (70-99); Magnesium 2.7 mg/dl (1.6-2.3); Sodium 140 mmol/L (135-145); Total Bilirubin 1.4 mg/dl (0.2-1.3); Total Protein 5.1 g/dl (6.3-8.2); eGFR 24.28
[2024-02-01] MEDS: DECADRON 4 MG IV (06:05)
[2024-02-01] MEDS: SYNTHROID 88 MCG TUBE (06:05)
--- NOTE | 2024-02-01 07:20 | W.PN.INTV ---
Today's Communication / Plan
Recommendations
Wean sedation, neuro eval
Urology eval for suspicion for prostate cancer/metastatic
Overall prognosis exceedingly poor
Care team has contacted family for [facility] discussions, await decision making
Continue supportive care
Assessment
-
Patient is a 73-year-old male with previous history of end-stage cardiomyopathy, EF 10% recently admitted to [place] and discharged earlier today presenting to the emergency department via EMS for cardiac arrest. Patient was found down in the
parking lot of [employer] by bystander. There is unknown amount of time patient was down. He was pulseless on arrival, ACLS and intubation performed by EMS. Received 24 minutes of ACLS in the field with multiple rounds of epinephrine, still in
cardiac arrest upon arrival to ER, underwent multiple rounds of epinephrine in ER, with ROSC at roughly 35 minutes total. He is admitted to ICU for further management.
s/p cardiac arrest/PEA post CPR/ACLS
Intubation and MV for unresponsiveness/airway protection
End stage CM 10-15% EF, recent admission
Cardiogenic shock
Acute on chronic HFrEF
Moderate to advanced bilateral hydroureteronephrosis with suspicion for obstructive uropathy
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
Suspect anoxic brain injury with myotonic jerks
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
Chronic ICM EF 10-15%
Hx VT storm s/p ablation
BI-V ICD in place
CAD with hx stenting status post cardiac cath x 5
PAF
CKD
HLD
HTN
Gout
Diverticulosis
Secondary hyperparathyroidism
Weight loss
Cardiorenal syndrome
Candidal pharyngitis
Anal abscess 2016
Bilateral knee osteoarthritis
Right inguinal hernia s/p Robotic Asst Lap incarcerated RT hernia ([facility]) DH� � 01/27/23� �
Plan
s/p cardiac arrest with prolonged downtime >30 mins
There was reported movement post resuscitation
Evaluation for TTM: This is likely excluded on the basis of hemodynamic instability, extreme cardiomyopathy
Do not think TTM could be tolerated based on current ongoing issues
Pain/sedation: Fentanyl drip, will wean as tolerated
RASS goals: 0
Frequent myotonic jerks are noted off sedation, unresponsive--likely to indicate anoxic injury
Neuro eval may be needed to eval for seizure and neurologic prognosis
Hemodynamically unstable, requiring pressors.
Requiring pressors: Currently maintained on Levophed at 2, may need inotrope
Cardiac history reviewed--end-stage cardiomyopathy, EF 10 to 15%
Well-known to cardiology service, continue Lasix
Moderate pleural effusion, can consider thoracentesis--likely related to acute obstructive uropathy
Prior ECHO reviewed
Hold/Resume home meds per team
History of VT, monitor on telemetry
Intubated on mechanical ventilation post-code
Vent setting reviewed: AC 550/16/60/5
ABG reviewed and adequate
Prior history of lung disease: Former smoker, not known to have COPD
No prior PFTs for review
Supplemental O2 as indicated to maintain sats > 89%
CXR/CT reviewed indicating moderate bilateral pleural effusions
May consider thoracentesis if indicated
Likely to be prolonged on vent
NPO, resume diet when able
Side Sawyer recommendations
Aspiration precautions, HOB > 30 degrees
Speech therapy eval can be considered if at elevated risk
GI prophylaxis if indicated for mechanical ventilation >48 hours, prior history of GERD, stress ulcer formation in the critically ill
History of chronic kidney disease stage III
Creat at baseline
Possible obstructive uropathy on CT imaging, may need urology to see
Void trials
Follow urine output, critical I/Os
Replete electrolytes as needed
No signs/symptoms suspicious for infectious etiology at this time
Observe off antibiotics for now
Cultures sent/pending
Blood
Sputum
Urine
Follow fever trend, WBC count
Suspicious for diffuse osteoblastic metastatic disease on imaging, this is new
Possible prostate primary given obstructive symptoms
Prognosis overall exceedingly poor with stage IV cancer potential
CBC stable, no signs of bleeding or coagulopathy.
DVT prophylaxis as assessed based on risk, including mechanical SCDs
Can transfuse if indicated for Hb <7, plt < 10
INR 2.83
No prior h/o diabetes
Monitor accuchecks PRN/SS coverage if needed
H/o hypothyroidism, can continue on home synthroid dose
Prognosis overall poor, may need goals of care discussion with family
He is currently full code
Diagnostic Data
Chest X-Ray: 01/31/24- Endotracheal tube tip approximately 4.5 cm above the denise. Findings highly suspicious for mild to moderate pulmonary edema.
01/29/24- Subtle blunting of the posterior costophrenic angle. Mild cardiomegaly. Mild vascular and slightly increased interstitial prominence is noted, as well has suggestion of subtle patchy acinar opacity, raising possibility of congestive heart
failure or volume overload. No pneumothorax.
01/12/24- 1. � Moderate to severe diffuse ground-glass opacity mixed with increased interstitial markings in both lungs which is much greater than 04/18/2022. Diagnostic possibilities are (1) acute interstitial and alveolar cardiogenic pulmonary edema
superimposed upon a chronic inflammatory interstitial pneumonitis or (2) acute inflammation from an inflammatory interstitial pneumonitis.
2. � New small bilateral pleural effusions.
3. � Mild cardiomegaly.
4. � Mild left deviation of the trachea which appears unchanged and could be secondary to a right-sided thyroid goiter or right paratracheal lymphadenopathy.
5. � Right-sided AICD in place.
CT Scan: CAP 01/31/24- Moderate bilateral pleural effusions. No pneumothorax. Mild patchy parenchymal opacities. Possible combination of chronic interstitial fibrotic changes, alveolitis, subtle pneumonia, or patchy alveolar edema. Mild mediastinal
adenopathy. Right-sided aortic arch. Nonspecific hazy stranding of the retroperitoneal fat superior to the pancreas and celiac artery. The pancreas is otherwise unremarkable. However, cannot entirely exclude possibility of edema related to adjacent
pancreatitis. Correlate with pancreatic enzymes.
Moderate to advanced bilateral hydroureteronephrosis without evidence of obstructing calculus. Suspicious for obstruction at the level of the ureterovesical junction. Diminished and prolonged nephrogram with delayed excretion of contrast. Possibly
on the basis of hypotension or obstructive uropathy. Minimal ascites. Mild diverticulosis. No evidence of acute diverticulitis.
Osteoblastic metastatic disease. Multiple multiple bilateral rib fractures. Incomplete sternal fracture. Nondisplaced right L3 transverse process fracture.
Echo: 12/16/23- Severely dilated LV with severely reduced systolic function. Estimated EF of 10-15%.�LAD and RCA territory hypokinesis and akinesis.�Normal right ventricular size and function.
Severe left atrial dilation.�Thickened and restricted leaflet motion with moderate mitral regurgitation.�Small anteriorly located pericardial effusion.�Compared to prior on August 28, 2020, LV function remains severely reduced.
PFT's:
Reports and relevant images were personally reviewed.
-----
Critical Care time 40 mins -- The patient is admitted for acute critical illness for the treatment of vital organ failure and/or prevention of further life-threatening conditions. Total care includes time spent in review of history, physical exam,
medications, hemodynamic/ventilator parameters, laboratory data, imaging and discussion with house staff, pharmacy, respiratory therapy, dog raiser, and nursing.
Subjective Dataa
Subjective Data
Date of Service:
Date of Service: February 01, 2024
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
Objective Data
Data Reviewed
Vital Signs / I&O / Oxygen:
Vital Signs
Temp Pulse Resp BP Pulse Ox
99.7 F 70 16 108/69 97
02/01/24 03:25 02/01/24 06:00 02/01/24 06:00 02/01/24 06:00 02/01/24 06:00
Intake and Output
01/31/24 02/01/24 02/02/24
05:59 06:59 06:59
Intake Total
Output Total
Balance
SaO2 [A/C] 97
SaO2 97
Nasal Cannula flow liters per 15
minute
Labs/Micro/Reports
Lab Data
02/01/24 05:06
02/01/24 05:06
Laboratory Results
01/31/24 01/31/24 02/01/24
12:29 13:17 04:58
PT 29.7 H
INR 2.83
APTT 35.3 H
pH 7.36 7.50 H
pCO2 39 34 L
pO2 374 H 49 L*
HCO3 22.0 26.5
O2 Delivery Level
--- NOTE | 2024-02-01 08:01 | W.PN.HOSP.TC ---
Addendum entered and electronically signed by Ramakrishna Villalobos MD 02/01/24 08:30:
PCN/cephalosporin allergy noted-aztreonam and Flagyl
De-escalate quickly based on new findings.
Original Note:
Today's Communication/Plan
-
CW Vent support per pulm
Wean vasopressors
Add Zosyn for lung indications
Follow WBC
Switch steroids to oral pred
Consult Urology
Assessment / Plan
Assessment / Plan
Djb-at-wjnofzje cardiac arrest- PEA arrest.�Reviewed by cardiology-rhythm normal sinus rhythm and was not shocked by the device and was noted to be in the PEA arrest.� No recurrence.? etiology for PEA code.
Ischemic cardiomyopathy with EF of 10 to 15% with recent episode of heart failure and noted to be in heart failure on post CPR CXR.� Suspect recurrent heart failure episode secondary to cardiac arrest.� His weight was down 18 pounds prior to
discharge.� Resumed Lasix 80 mg IV twice daily.� suspect Non ischemic troponin elevation.� Elevated BNP noted.� Cardiology input about right heart catheterization noted.� He is on Coreg which will hold because of hypotension.� He was put on
hydralazine recent visit which I would hold because of hypotension.
Shock - suspect cardiogenic - on vasopressors -wean as able.
Vent dependent respiratory failure-patient got intubated as part of code.� Continue with vent support and wean oxygen as able.� Prior to recent discharge he was on room air.
Recent suspected possible bronchitis-was put on steroid taper on discharge which I would continue . No active bronchospasm .Will switch to oral prednisone
BL pleural effusions - suspect sec to CHF -cw diuresis
BL patchy bilateral lower lung opacities-broad differential including chronic interstitial fibrosis, alveolitis, subtle pneumonia, or patchy alveolar edema. Afebrile. Elevated leukocytosis which could be stress response, steroids but with unclear
clinical picture and unknown downtim cant rule out infectious process. Chekcing procal in CKD is not goingt to be specific. Start on emp abx and deescalate if it point out to pulm edema .
Multiple rib fractures/incomplete sternal fracture from CPR.� Patient currently intubated.� No pneumothorax.� Follow closely for any complications.
Chronic kidney disease stage IV-creatinine 2.7 better than morning.� No hyperkalemia or acidosis.� Follow creatinine closely with diuresis.
Osteoblastic lesions with rib fractures.� Bone fracture and L3 fracture noted.� I am not aware about any malignancy during his last visit.� He also has Moderate to advanced bilateral hydroureteronephrosis without evidence of obstructing calculus.
Suspicious for obstruction at the level of the ureterovesical junction.
Diminished and prolonged nephrogram with delayed excretion of contrast. Possibly on the basis of hypotension or obstructive uropathy.
consult urology .
Hypertension-hold antihypertensives because of hypotension.
Paroxysmal atrial fibrillation-continue with amiodarone and anticoagulation.
Full code
Called his brother on [phone] and left a voice mail today.
Total Critical Care Time__35___ minutes. I was immediately available to the patient and staff. I personally examined, reviewed labs, diagnostic images/reports, interpretations, treatment plans, discussed patient care with other providers and
family or caregivers (if patient is unable to make decisions), entered orders as appropriate and documented the medical record.
Anticipated Discharge: > 48 hours
Subjective/Interval History
-
Date of Service: February 01, 2024
Patient sedated and intubated. Unresponsive.
Objective Data
-
Labs:
Laboratory Results
02/01/24 02/01/24 02/01/24
04:58 05:06 05:18
WBC 14.0 H
Hgb 9.1 L
Hct 27.8 L
Plt Count 146
HCO3 26.5 Pending
Sodium 140
Potassium 4.0
Chloride 105
Carbon Dioxide 27
BUN 65 H
Creatinine 2.7 H
Glucose 127 H
Calcium 8.4
Total Bilirubin 1.4 H
AST 58
ALT 46
Alkaline Phosphatase 271 H
Vital Signs:
Vital Signs
Temp Pulse Resp BP Pulse Ox
98.7 F 70 16 108/69 98
02/01/24 07:41 02/01/24 06:00 02/01/24 06:00 02/01/24 06:00 02/01/24 07:49
I&O
01/31/24 02/01/24 02/02/24
05:59 06:59 06:59
Intake Total
Output Total
Balance
Review of Systems
-
Unable to obtain full review of systems at this time due to: Patient Intubation
Physical Exam
-
General: No Apparent Distress
HEENT: Moist Mucous Membranes
Respiratory: Clear to Auscultation (anteriorly)
Cardiac: Regular Rhythm (av paced) and S1/S2
GI: Soft, Nondistended and Normal Bowel Sounds
Musculoskeletal: Edema, Right Lower Extrem and Edema, Left Lower Extrem
Neuro: Negative Awake or Alert
Psych: Calm
Data Reviewed
-
Labs: Labs Reviewed by me
[2024-02-01] MEDS: KCL ELIXIR 20 MEQ TUBE (08:13)
[2024-02-01] MEDS: PACERONE 200 MG TUBE (08:14)
[2024-02-01] MEDS: LOW STRENGTH ASPIRIN 81 MG TUBE (08:14)
[2024-02-01] MEDS: ZYLOPRIM 50 MG TUBE (08:14)
[2024-02-01] MEDS: LEVOPHED 250 IV ×2 (08:14→17:39)
[2024-02-01] MEDS: LASIX 80 MG IV (08:14)
[2024-02-01] MEDS: ELIQUIS 5 MG TUBE (08:14)
[2024-02-01] MEDS: REFRESH CELLUVISC GEL 1 DROPS BOTH EYES (08:15)
[2024-02-01 09:01] LABS: Lipase 50 U/L (23-300)
--- NOTE | 2024-02-01 09:31 | CONS.URO ---
Consultation
-
Date/Time Consultation Requested: 02/01/2024
Date/Time Consultation Performed: 02/01/2024 935
Requesting Provider: Wilfredo
Performing Provider: Hugo
Reason for Consultation: obstructive uropathy
Medical History
History of Present Illness
73 yo man admitted to [facility] 01/29/2024 to 01/31/2024 for episode of congestive heart failure.� Shortly after hospital discharge he suffered a cardiac arrest .
CT of C/A/P: '
Moderate to advanced bilateral hydroureteronephrosis without evidence of obstructing calculus. Suspicious for obstruction at the level of the ureterovesical junction.
Diminished and prolonged nephrogram with delayed excretion of contrast. Possibly on the basis of hypotension or obstructive uropathy.
Osteoblastic metastatic disease. Multiple multiple bilateral rib fractures. Incomplete sternal fracture. Nondisplaced right L3 transverse process fracture.
12/24/2023 PSA by PCP: 117
patient is intubated in ICU, precluding interview
Past Medical History
Past Medical History: Other ( Ischemic cardiomyopathy LVEF 20%, Chronic atrial fibrillation, Chronic anticoagulation, Hypertension, primary, Diverticulosis, Gout, CKD 3B, Secondary hyperparathyroidism of renal disease, Intentional weight loss,
Acquired hypothyroidism, Hypovitaminosis D, Cardiorenal syndrome with renal failure, )
Past Surgical History: Other (Cardiac cath x5 ([id number]), 2014 , Biventricular ICD [employer] , Ventricular tachycardia ablation 09/12, Cataract left eye 02/2020, Pacemaker/ICD battery replacement 03/2022, Robotic Asst Lap incarcerated RT
hernia ([facility]) DH 01/27/23.)
Social History
Unable to obtain full social history at this time due to: Patient Intubation
Family History
Family History: Unable to Obtain
Allergies/Home Medications
Allergies
Allergy/AdvReac Type Severity Reaction Status Date / Time
Cephalosporins Allergy Rash Verified 01/31/24 12:17
moxifloxacin HCl Allergy Hives Verified 01/31/24 12:17
[From Avelox]
penicillin V Allergy Hives Verified 01/31/24 12:17
Penicillins Allergy Hives Verified 01/31/24 12:17
Home Medications
Medication Instructions Recorded Confirmed Type
atorvastatin 40 mg tablet 40 mg PO HS High cholesterol 01/30/12 01/31/24 History
carvedilol 6.25 mg tablet 6.25 mg PO BID Blood pressure 01/30/12 01/31/24 History
lorazepam 0.5 mg tablet 0.5 mg PO .SEE BELOW PRN 01/30/12 01/31/24 History
anxiety
allopurinol 100 mg tablet 100 mg PO BID GOUT 05/26/19 01/31/24 History
calcitriol 0.25 mcg capsule 0.25 mcg PO DAILY Kidney Disease 05/26/19 01/31/24 History
cyanocobalamin (vitamin B-12) 1,000 mcg PO BID Supplement 05/26/19 01/31/24 History
1,000 mcg tablet
amiodarone 200 mg tablet (Pacerone) 200 mg PO BID Arrhythmia 08/28/20 01/31/24 History
apixaban 5 mg tablet (Eliquis) 5 mg PO BID Blood clot 04/18/22 01/31/24 History
prevention/tx
magnesium oxide 500 mg PO DAILY Electrolyte 04/18/22 01/31/24 History
Repletion
aspirin 81 mg tablet,delayed 81 mg PO DAILY Blood Clot 12/15/23 01/31/24 History
release Prevention/Tx
cholecalciferol (vitamin D3) 25 25 mcg PO BID supplement 12/15/23 01/31/24 History
mcg (1,000 unit) tablet
diphenhydramine 25 2 tab PO HS PRN sleep 12/15/23 01/31/24 History
mg-acetaminophen 500 mg tablet
(Tylenol PM Extra Strength)
levothyroxine 88 mcg tablet 88 mcg PO DAILY AT 0700 thyroid 12/15/23 01/31/24 History
polyethylene glycol 400 0.25 % eye 1 drp ophthalmic (eye) BID Eye 12/15/23 01/31/24 History
gel drops (Blink Gel Tears) Condition
tamsulosin 0.4 mg capsule 0.4 mg PO HS Urinary Issue 12/15/23 01/31/24 History
potassium chloride 20 mEq 20 meq PO BID Electrolyte Repletion 12/16/23 01/31/24 History
tablet,extended
release(part/cryst) (Klor-Con M)
albuterol sulfate 90 mcg/actuation 1 puff inhalation R Q4HPRN PRN sob 01/29/24 01/31/24 History
aerosol inhaler
furosemide 80 mg tablet 80 mg PO BID@0800,1600 Fluid 01/29/24 01/31/24 History
Retention/Swelling
trazodone 50 mg tablet 50 mg PO HS PRN sleep 01/29/24 01/31/24 History
vitamins A,C,J-rfnz-wlidst 2,148 1 tab PO BID Supplement 01/29/24 01/31/24 History
mcg-113 mg-45 mg-17.4 mg tablet
(PreserVision AREDS)
hydralazine 25 mg tablet 25 mg PO BID #60 tabs 01/31/24 01/31/24 Rx
pantoprazole 40 mg tablet,delayed 40 mg PO DAILY #7 tabs 01/31/24 01/31/24 Rx
release (Protonix)
prednisone 10 mg tablet 10 mg PO DIRECTED #12 tabs 01/31/24 01/31/24 Rx
Physical Exam
Vital Signs
Vital Signs
Temp Pulse Resp BP Pulse Ox
98.7 F 78 23 75/62 95
02/01/24 07:41 02/01/24 09:00 02/01/24 09:00 02/01/24 09:00 02/01/24 09:00
Lab / Testing Results
Laboratory Results
02/01/24 05:06
02/01/24 05:06
Physical Exam
adult male
intubated in ICU
Smith: slighty bloody urine
Assessment / Plan
-
Likely Prostate Cancer
Bilateral Hydroureteronephrosis -- appears to be due to bladder outlet obstruction
[place]se[place] metastatic disease of unverified origin but probably prostatic given PSA elevation
Renal Insufficiency
Suspected UTI
Rec:
keep Smith to improve and preserve renal function
empiric antibiosis for suspected UTI
will consider prostate biopsy AFTER infection has been eradicated
Cardiology - Oncology consultation to determine if Bicalutamide prescribed empirically would be reasonable
Data Reviewed
-
CT Scan: Image personally visualized and interpreted (bilateral hydroureteronepthrosis; Smith in bladder; prostatic enlargement)
Lab Data: Labs Reviewed (UA implies UTI; urine c&S is pending)
Old Records: Reviewed ([facility] outpatient records; [facility] records)
[2024-02-01] MEDS: STERILE WATER FOR INJECTION 10 ML IV ×2 (09:35→17:34)
[2024-02-01] MEDS: AZACTAM 1000 MG IV ×2 (09:35→17:34)
[2024-02-01] MEDS: FLAGYL 500 MG 100 IV ×2 (09:47→17:34)
--- NOTE | 2024-02-01 09:57 | W.PN.CD ---
Today's Communication / Plan
-
- Neurologic evaluation
0 goal of care discussion with family.
Impression / Plan
-
Cardiac arrest
- PEA arrest
- No shock needed
- Unclear neurologic outcome
- fasciculations noted.
- unclear response.
- Possible severe anoxic brain injury
- Neurology evaluation
Cyvtq-op-vrulkan HFrEF:
- gradual advnaced heartt failure
- s/p BiV ICD
- LVEF 10%
- If clinically indicated and is noted to have neurologic response then can consider RHC to assess the need for inotropes.
ICM EF 10-15%:
-afterload reductionis on hold due to hypotension.
-other meds limited by renal function
-Bi-V ICD in place
Hx VT s/p ablation:
-on amiodarone and BB
-Bi-V ICD in place
Hypokalemia:
-replace and monitor
CAD with hx stenting:
-continue ASA, statin, BB
PAF:
-stable in SR
-continue Eliquis for OAC
CKD:
-diuresed without penalty
Physical Exam
Vital Signs/Labs
Vital Signs
Temp Pulse Resp BP Pulse Ox
98.7 F 78 23 75/62 95
02/01/24 07:41 02/01/24 09:00 02/01/24 09:00 02/01/24 09:00 02/01/24 09:00
01/31/24 02/01/24 02/02/24
05:59 06:59 06:59
Actual Weight
02/01/24 05:06
02/01/24 05:06
PT 29.7 Sec (11.4-14.6) H 01/31/24 12:29
INR 2.83 01/31/24 12:29
APTT 35.3 Sec (23.4-35.0) H 01/31/24 12:29
Magnesium 2.7 mg/dl (1.6-2.3) H 02/01/24 05:06
Triglycerides 89 mg/dl (10-149) 01/31/24 20:24
01/31/24
12:29
Kuh-Y-Zqucxzlhzfy Pept 53614
LAB Results
01/31/24 01/31/24 01/31/24
12:29 16:38 22:49
Troponin I 0.027 0.098 H* D 0.133 H* D
Physical Exam
Constitutional: Other (intubated and sedated with fasciculations )
EENT: Anicteric and Moist mucous membranes
Cardiovascular: Rhythm & rate is regular, Pedal edema is absent, JVD present and Systolic murmur present
Respiratory: Rhonchi Present and Other (intubated.)
GI: Soft and Distention absent
Neuro/Psych: Other (sedated and intubated. )
Data Reviewed
-
Date of Service: February 01, 2024
Medical Decision Making: Reviewed Test Results and Test Interpretation
EKG: Tracing Personally Visualized and interpreted
Echo: Report Reviewed by me
X-Ray/CT/US/MRI/NUC/PET: Image Personally Visualized and interpreted
Labs: Labs Reviewed by me
Old Records: Reviewed
Critical Care Time (in minutes): 32
--- NOTE | 2024-02-01 10:01 | CON.NEURO ---
Neuro Assessment/Plan
Assessment
IMPRESSIONS/RECOMMENDATIONS:
Abrupt change in mental status
Due to anoxic encephalopathy
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 Decisions regarding prognosis are limited based on an absence of data from EEG
Better understanding of future prognosis by 3 days after brain insult
Plan
Check EEG with consideration for continuous EEG monitoring
Consider repeat CT of head at day 3 after injury (02/03/2024)
Initiate levetiracetam 2000 mg IV x 1 then 1000 mg twice a day as attempt to reduce myoclonus
Avoid additional sedative agents at this time, must consider use of fentanyl drip to suppress myoclonus
Continue supportive care
Will continue to follow patient.
Consultation
Order
Date of Consultation: 02/01/24
Requesting Provider: Hospitalists
Reason for Consult: Anoxic encephalopathy
Subjective/Objective
Subjective Data
Date of Service: February 01, 2024
Patient presented to this [facility]'s emergency department On 01/29/2024 due to 5-day history of shortness of breath which had worsened. Patient was subsequently hospitalized and discharged on the same day of return to the hospital, 2 hours later.
Upon return to the emergency department, the patient was in cardiac arrest with an unclear downtime. The patient was pulseless and apneic, receiving 24 minutes of ACLS in the field with multiple rounds of epinephrine. The patient was intubated
while in the field and brought to this hospital for further evaluation and treatment. Return of spontaneous circulation was at approximately 35 minutes. Patient was described in the records as moving all extremities after arrest. Decision was
made to not have the patient undergo targeted temperature management.
Objective Data
Vital Signs
Temp Pulse Resp BP Pulse Ox
37.1 C 78 23 75/62 95
02/01/24 07:41 02/01/24 09:00 02/01/24 09:00 02/01/24 09:00 02/01/24 09:00
Lab Results
02/01/24 05:06
02/01/24 05:06
PT 29.7 Sec (11.4-14.6) H 01/31/24 12:29
INR 2.83 01/31/24 12:29
APTT 35.3 Sec (23.4-35.0) H 01/31/24 12:29
Sodium 140 mmol/L (135-145) 02/01/24 05:06
Potassium 4.0 mmol/L (3.5-5.1) 02/01/24 05:06
BUN 65 mg/dl (9-20) H 02/01/24 05:06
Glucose 127 mg/dl (70-99) H 02/01/24 05:06
Calcium 8.4 mg/dl (8.4-10.2) 02/01/24 05:06
Apb-J-Lyrbhfzhrzs Pept 11035 pg/ml 01/31/24 12:29
Patient Allergies
Cephalosporins Allergy (Verified 01/31/24 12:17)
Rash
moxifloxacin HCl [From Avelox] Allergy (Verified 01/31/24 12:17)
Hives
penicillin V Allergy (Verified 01/31/24 12:17)
Hives
Penicillins Allergy (Verified 01/31/24 12:17)
Hives
Review of Systems
-
Unable to obtain full review of systems at this time due to: Patient Intubation, Lethargy and Aphasia
History Source: Patient
All other systems: Reviewed and negative
Physical Exam
-
General: No Apparent Distress, Intubated and Appears Stated Age
Eyes: Round OU, [place] Conjunctivae and No Ptosis; Negative Able to visualize OU
HEENT: Anicteric and Moist Mucous Membranes
Neck: Full Range of Motion
Respiratory: No Dyspnea
Cardiac: No JVD
GI: Non-distended
Skin: Other (Stasis changes)
Extremities: No Clubbing, No Cyanosis and No Edema
Psych: Unable to Assess
Extended Neurological Exam
Mood & Affect: Unable to Assess
Attention Span & Concentration: Unresponsive to Verbal Stimuli and Unresponsive to Physical Stimuli; Negative Awake, Alert or Interactive
Memory: Unable to Assess
Tremor: Hand Tremor Absent and Head Tremor Absent
Involuntary Movement: Other (Irregular medium amplitude multifocal head movements lasting 0.25 seconds at times causing blinking or eye opening bilaterally single eye, nearly constant)
Speech: Mute
Cranial Nerve II: Left Eye: Pupillary Reactivity Unremarkable, Pupillary Size Unremarkable and Unable to Assess Visual Lerner
Cranial Nerve II: Right Eye: Pupillary Reactivity Unremarkable, Pupillary Size Unremarkable and Unable to Assess Visual Lerner
Cranial Nerves III, IV, : Extraocular Movement: Absent Doll's Eyes
Cranial Nerve V: Facial Sensation: Unable to Assess
Cranial Nerve VII: Facial Symmetry: Normal Facial Symmetry
Cranial Nerve VIII: Hearing: Unable to Assess
Cranial Nerves IX, X: Palate Movement: Unable to Assess
Cranial Nerve XI: Shoulder Shrug: Unable to Assess
Cranial Nerve XII: Tongue Protusion: Unable to Assess
Muscle Strength, Overall: Negative Spontaneously Moves
Muscle Bulk & Tone: Bulk Unremarkable and Tone Unremarkable
Pronator Drift: Unable to Assess
Deep Tendon Reflexes: Trace Throughout; Negative AJ Right or AJ Left
Cold Sensation: Unable to Assess
Vibration Sensation: Unable to Assess
Touch Sensation: Negative Withdrawal to Pain
Coordination: Unable to Assess
Babinski Sign: Present Bilaterally
Gait & Station: Unable to Assess
Data Reviewed
-
CT Head: Report Reviewed and Image Reviewed
CT Cervical Spine: Report Reviewed
Labs: Report Reviewed
Reviewed with: Physician and Nurse
Old Records: Summarized
Medications
-
Active Medications
Generic Name Dose Route Start Last Admin
Trade Name Freq PRN Reason Stop Dose Admin
Albuterol 1 puff 01/31/24 15:55
Albuterol Hfa [90 Mcg/Dose] Inhaler INH
R Q4HPRN PRN
sob
Protocol
Allopurinol 50 mg 02/01/24 08:00 02/01/24 08:14
Allopurinol 100 Mg Tablet TUBE 02/29/24 07:59 50 mg
DAILY JOSE ALBERTO Administration
Amiodarone HCl 200 mg 01/31/24 20:00 02/01/24 08:14
Amiodarone 200 Mg Tablet TUBE 02/28/24 19:59 200 mg
BID JOSE ALBERTO Administration
Apixaban 5 mg 01/31/24 20:00 02/01/24 08:14
Apixaban (Eliquis) 5 Mg Tablet TUBE 02/28/24 19:59 5 mg
BID JOSE ALBERTO Administration
Aspirin 81 mg 02/01/24 08:00 02/01/24 08:14
Aspirin 81 Mg Chewable Tablet TUBE 02/29/24 07:59 81 mg
DAILY JOSE ALBERTO Administration
Atorvastatin Calcium 40 mg 01/31/24 22:00 01/31/24 20:02
Atorvastatin (Lipitor) 40 Mg Tablet TUBE 02/28/24 21:59 40 mg
HS JOSE ALBERTO Administration
Aztreonam 1,000 mg 02/01/24 10:00 02/01/24 09:35
Aztreonam 1,000 Mg/10 Ml Vial IV 1,000 mg
Q8H JOSE ALBERTO Administration
Carboxymethylcellulose Sodium 1 drops 01/31/24 20:00 02/01/24 08:15
Carboxymethylcellulose Ophth Gel (Celluvisc) Droperette BOTH EYES 02/28/24 19:59 1 drops
BID JOSE ALBERTO Administration
Dexamethasone Sodium Phosphate 4 mg 01/31/24 18:00 02/01/24 06:05
Dexamethasone 4 Mg/Ml 1 Ml Vial IV 02/01/24 17:59 4 mg
Q12H JOSE ALBERTO Administration
Fentanyl Citrate 50 mcg 01/31/24 12:29 02/01/24 01:48
Fentanyl (50 Mcg/Ml) 100 Mcg/2 Ml Ampul IV 02/14/24 12:28 50 mcg
[id number] PRN Administration
see protocol
Protocol
Furosemide 80 mg 02/01/24 08:00 02/01/24 08:14
Furosemide 100 Mg (10 Mg/Ml) 10 Ml Vial IV 02/29/24 07:59 80 mg
BID AT 0800,1600 JOSE ALBERTO Administration
Norepinephrine Bitartrate 4 mg in 250 mls @ 0 mls/hr 01/31/24 15:55 02/01/24 08:14
Levophed IV 250 mls
PER PROTOCOL JOSE ALBERTO Administration
Protocol
Per Protocol
Fentanyl Citrate 1,000 mcg in 100 mls @ 0 mls/hr 01/31/24 19:15
Sublimaze IV
PER PROTOCOL JOSE ALBERTO
Protocol
Per Protocol
Propofol 1,000,000 mcg in 100 mls @ 0 mls/hr 01/31/24 20:00 01/31/24 20:02
Diprivan IV 100 mls
PER PROTOCOL JOSE ALBERTO Administration
Protocol
Per Protocol
Metronidazole 100 mls @ 100 mls/hr 02/01/24 10:00 02/01/24 09:47
Flagyl 500 Mg IV 100 mls
Q8H JOSE ALBERTO Administration
Levothyroxine Sodium 88 mcg 02/01/24 07:00 02/01/24 06:05
Levothyroxine 88 Mcg Tablet TUBE 02/29/24 06:59 88 mcg
DAILY AT 0700 JOSE ALBERTO Administration
Magnesium Oxide 500 mg 02/01/24 08:00
Magnesium Oxide 500 Mg Tablet PO 02/29/24 07:59
DAILY JOSE ALBERTO
Midazolam HCl 5 mg 01/31/24 23:52 02/01/24 01:51
Midazolam 1 Mg/Ml 5 Ml Vial IV 02/28/24 23:51 5 mg
Q2HPRN PRN Administration
anxiety/seizure/vent synch
Potassium Chloride 20 meq 01/31/24 20:00 02/01/24 08:13
Potassium Chloride 10% Oral Solution (20 Meq/15 Ml) Cup TUBE 02/28/24 19:59 20 meq
BID JOSE ALBERTO Administration
Prednisone 30 mg 02/02/24 08:00
Prednisone 10 Mg Tablet TUBE 03/01/24 07:59
DAILY JOSE ALBERTO
Sodium Chloride 0 flush 01/31/24 17:00
Sodium Chloride 0.9% (Flush) Syringe IV 02/28/24 16:59
PER PROTOCOL JOSE ALBERTO
Sterile Water 10 ml 02/01/24 10:00 02/01/24 09:35
Sterile Water For Injection 10 Ml Vial IV 02/29/24 09:59 10 ml
Q8H JOSE ALBERTO Administration
Tamsulosin HCl 0.4 mg 01/31/24 22:00
Tamsulosin 0.4 Mg Capsule PO 02/28/24 21:59
HS JOSE ALBERTO
Home Medications
Medication Instructions Recorded
atorvastatin 40 mg tablet 40 mg PO HS High cholesterol 01/30/12
carvedilol 6.25 mg tablet 6.25 mg PO BID Blood pressure 01/30/12
lorazepam 0.5 mg tablet 0.5 mg PO .SEE BELOW PRN 01/30/12
anxiety
allopurinol 100 mg tablet 100 mg PO BID GOUT 05/26/19
calcitriol 0.25 mcg capsule 0.25 mcg PO DAILY Kidney Disease 05/26/19
cyanocobalamin (vitamin B-12) 1,000 mcg PO BID Supplement 05/26/19
1,000 mcg tablet
amiodarone 200 mg tablet (Pacerone) 200 mg PO BID Arrhythmia 08/28/20
apixaban 5 mg tablet (Eliquis) 5 mg PO BID Blood clot 04/18/22
prevention/tx
magnesium oxide 500 mg PO DAILY Electrolyte 04/18/22
Repletion
aspirin 81 mg tablet,delayed 81 mg PO DAILY Blood Clot 12/15/23
release Prevention/Tx
cholecalciferol (vitamin D3) 25 25 mcg PO BID supplement 12/15/23
mcg (1,000 unit) tablet
diphenhydramine 25 2 tab PO HS PRN sleep 12/15/23
mg-acetaminophen 500 mg tablet
(Tylenol PM Extra Strength)
levothyroxine 88 mcg tablet 88 mcg PO DAILY AT 0700 thyroid 12/15/23
polyethylene glycol 400 0.25 % eye 1 drp ophthalmic (eye) BID Eye 12/15/23
gel drops (Blink Gel Tears) Condition
tamsulosin 0.4 mg capsule 0.4 mg PO HS Urinary Issue 12/15/23
potassium chloride 20 mEq 20 meq PO BID Electrolyte Repletion 12/16/23
tablet,extended
release(part/cryst) (Klor-Con M)
albuterol sulfate 90 mcg/actuation 1 puff inhalation R Q4HPRN PRN sob 01/29/24
aerosol inhaler
furosemide 80 mg tablet 80 mg PO BID@0800,1600 Fluid 01/29/24
Retention/Swelling
trazodone 50 mg tablet 50 mg PO HS PRN sleep 01/29/24
vitamins A,C,W-zgjl-adgvlc 2,148 1 tab PO BID Supplement 01/29/24
mcg-113 mg-45 mg-17.4 mg tablet
(PreserVision AREDS)
hydralazine 25 mg tablet 25 mg PO BID #60 tabs 01/31/24
pantoprazole 40 mg tablet,delayed 40 mg PO DAILY #7 tabs 01/31/24
release (Protonix)
prednisone 10 mg tablet 10 mg PO DIRECTED #12 tabs 01/31/24
Past History
Past History
ED Past Medical History: Arrthythmia (Atrial fibrillation), CAD, Cancer (Prostate), CHF, HTN, Hypercholesterolemia, NIDDM, PR, Valvular disease, Hypothyroidism, Other (Ischemic cardiomyopathy gout, secondary hyperparathyroidism, anal abscess 2016,
cardiogenic shock 1999, candidial pharyngitis, vit D deficiency) and Other (Obstructive uropathy)
ED Past Surgical History: Cardiac (dual-chamber pacemaker, ICD, ventricular ablation) and Other (right inguinal hernia)
Social History
Tobacco: Former smoker
Alcohol: None
Drug: None
Personal: Other
Living: with family
Employment: Other
Family History
Family History: CAD
--- NOTE | 2024-02-01 12:00 | PTCARENOTE ---
Pt unresponsive. Sedation off. Myoclonic twitching continues. Levophed per protocol. AV paced. Tolerating ventilator. Not seen overbreathing ventilator. (Telemetry picks up myoclonic jerking as increased respiratory rate). All other
assessments unchanged.
[2024-02-01] MEDS: KEPPRA 2000 MG IV (12:17)
[2024-02-01] MEDS: LASIX IV (16:37)
--- NOTE | 2024-02-01 17:14 | PTCARENOTE ---
Pt unresponsive. Sedation off. Myoclonus vs Seizure activity. Just placed on continuous EEG.
BP trending down. Levophed at 12mcg/min. 1600 Lasix dose held and new order from Vasopressin.
AV paced. Worsening LE edema.
Tolerating ventilator. Scant secretions via ETT.
Poor urine output. Blood tinged urine.
All other assessments unchanged.
[2024-02-01] MEDS: PITRESSIN 100 IV (17:34)
[2024-02-01] MEDS: NEO-SYNEPHRINE 250 IV (18:50)
[2024-02-01] MEDS: OFIRMEV 100 IV (18:53)
[2024-02-01 18:58] LABS: Hematocrit 29.7 % (39.0-52.0); Hemoglobin 9.3 g/dL (13.0-18.0); Mean Corp Hgb Conc. 31.3 g/dL (33.0-37.0); Mean Corpuscular Hgb 32.5 pg (27.0-31.0); Mean Corpuscular Volume 103.8 fL (80.0-94.0); Mean Platelet Volume 11.7 fL (7.4-10.4); Platelet Count 143 10^3/uL (130-400); Red Blood Cell Count 2.86 10^6/uL (4.70-6.10); Red Cell Dist. Width 18.3 % (11.5-14.5); White Blood Cell Count 18.4 10^3/uL (4.8-10.8)
--- NOTE | 2024-02-01 19:05 | W.PN.UPDATE ---
Update Note
Progress Note Update
Patient's brother Theodore, called the ICU for update, in discussion patient's previous wishes were no extreme measures including DNR. Code status updated to DNR. Family is coming in to see the patient and make him comfort measures and likely
terminally extubating.
--- NOTE | 2024-02-01 19:06 | PTCARENOTE ---
Went into patient's room at start of shift for handoff from dayshift RN (around 1845). Pt intubated, #7.5 ETT, AC 16/550/40/5, maintaining SpO2 98%. 100% AV paced on monitor, HR 70. Maxed on Levophed at 30mcg/min, and Vasopressin at 0.03units/min.
Neosynephrine started at 1850, pt's BP was 63/33 MAP 42 so Scotty was immediately started at 100mcg/min. Subsequent BP was 120/49 with MAP of 71. 24 hour EEG in progress. Pt displaying almost constant twitching movements to chest/neck/face, eyes open
and deviating upwards and then down/around rhythmically. Pt unresponsive to painful stimuli, pupils are 2mm and sluggishly reactive, + cough when suctioning but no gag present. Temp 103.3 (core), receiving Ofirmev at start of shift. Physical
assessment completed, see nursing shift assessment flowsheet for full details. At start of shift Adi Salmon ICU MATHEMATICS DEPARTMENT CHAIR on phone with pt's brother (first time since pt readmitted after cardiac arrest), informed him of situation, brother stating that pt
would not want any of this and he should be extubated and made comfort care. Code status changed to DNR, waiting to withdrawal care until brother and other siblings arrive (currently on their way from [place]).
[2024-02-01 19:13] LABS: Blood Urea Nitrogen 68 mg/dl (9-20); Calcium 7.9 mg/dl (8.4-10.2); Carbon Dioxide 24 mmol/L (22-30); Chloride 106 mmol/L (98-107); Estimated Creatinine Clearance 25 ml/min; Glucose 148 mg/dl (70-99); Potassium 4.4 mmol/L (3.5-5.1); Sodium 140 mmol/L (135-145); eGFR 23.24
--- NOTE | 2024-02-01 20:29 | PTCARENOTE ---
Pt's 2 brothers and sister at bedside, want to withdrawal care. All pressors turned off at 2023 and EEG machine unhooked so that chairs could be brought closer to the bedside for family to sit with patient.
[2024-02-01] MEDS: MORPHINE SULFATE 2 MG IV ×3 (20:37→23:31)
[2024-02-01] MEDS: ATIVAN 2 MG IV (20:46)
[2024-02-01] MEDS: REFRESH CELLUVISC GEL BOTH EYES (20:50)
[2024-02-01] MEDS: KCL ELIXIR TUBE (20:50)
[2024-02-01] MEDS: ELIQUIS TUBE (20:50)
[2024-02-01] MEDS: PACERONE TUBE (20:50)
--- NOTE | 2024-02-01 20:51 | PTCARENOTE ---
Pt extubated at around 2045, 2mg morphine and 2mg ativan given, see EMAR for details. Family at bedside. Magnet placed on pt's pacer/AICD.
--- NOTE | 2024-02-01 20:54 | EEGC.RPT ---
Continuous EEG Report
Recording
Start Date of Data Reviewed: 02/01/24
Start Time of Data Reviewed: 16:30
End Date of Data Reviewed: 02/01/24
End Time of Data Reviewed: 21:25
Type of EEG: Continuous
Done with Video Recording: Yes
Study Sequence: Initiation of Study
Electrocardiogram: Unremarkable
Report
CONTINUOUS EEG MONITORING INTERPRETATION:
Severely abnormal EEG for age due to:
Bihemispheric cortical dysfunction and continuous generalized periodic epileptiform activity
CLINICAL CORRELATION:
This study was suggestive of status epilepticus, consistent with myoclonic movements and severe anoxic injury.
Immediate clinical correlation is advised.
METHODS:
A 21 channel digitized electroencephalogram (EEG) was performed at the bedside in the intensive care unit.� The 10/20 international system of electrode placement was used.� ECG was monitored.� Video was recorded.
ELECTROENCEPHALOGRAPHER IMPRESSION(S):
Quality
Good
Background
����������� Maximum: Not defined
����������� Amplitude: Not defined
����������� Anterior-posterior gradient: Absent
Sleep
Absent
Abnormal EEG activity
Continuous generalized bilateral variable medium to high amplitude delta (one to three per second) activity
ECG
����������� Unremarkable
[2024-02-01] MEDS: ROBINUL 0.200000000000000011 MG IV (23:31)
--- NOTE | 2024-02-02 00:25 | PTCARENOTE ---
Around 0017 pt's HR went kunal into 30s, by 0020 went asystolic.
--- NOTE | 2024-02-02 00:38 | W.PN.DEATH ---
Pronouncement of
-
Called to see patient to pronounce.
No spontaneous heart tones or respirations noted.
Patient not responsive to verbal stimuli.
Patient is pronounced .
Time of : 00:20
Date of : 02/02/24
Cause of : acute respiratory failure, cardiopulmonary arrest, acute on chronic congestive heart failure
Family Notified: Yes (brother Theodore Coronel)
== END 2024-02-02 00:20 | disposition expired | DRG 208 ==
LOC: ICU 15:53
PROVIDERS: Nurse Practitioner Family; ADMITTING PHYSICIAN Internal Medicine; CONSULT PHYSICIAN Internal Medicine; CONSULT PHYSICIAN Psychiatry & Neurology Neurology; CONSULT PHYSICIAN Specialist; EMERGENCY PHYSICIAN Emergency Medicine
PROC: 5A1945Z Respiratory Ventilation, 24-96 Consecutive Hours (ICD-10-PCS; 2024-01-31)
PROC: 0BH17EZ Insertion of Endotracheal Airway into Trachea, Via Natural or Artificial Opening (ICD-10-PCS; 2024-01-31)
DX: J96.00 Acute respiratory failure, unspecified whether with hypoxia or hypercapnia (principal); I50.23 Acute on chronic systolic (congestive) heart failure; I13.0 Hypertensive heart and chronic kidney disease with heart failure and stage 1 through stage 4 chronic kidney disease, or unspecified chronic kidney disease; I5A Non-ischemic myocardial injury (non-traumatic); N18.4 Chronic kidney disease, stage 4 (severe); M96.A1 Fracture of sternum associated with chest compression and cardiopulmonary resuscitation; M96.A3 Multiple fractures of ribs associated with chest compression and cardiopulmonary resuscitation; I25.10 Atherosclerotic heart disease of native coronary artery without angina pectoris; I25.5 Ischemic cardiomyopathy; I48.0 Paroxysmal atrial fibrillation; Z79.01 Long term (current) use of anticoagulants; Z95.810 Presence of automatic (implantable) cardiac defibrillator
CPT/HCPCS: 43752; 51702; 70450; 71045; 71260; 72125; 74018; 74177; 80048; 80053; 81003; 81015; 82805; 82962; 83690; 83735; 83880; 84478; 84484; 85025; 85027; 85610; 85730; 87070; 87077; 87086; 87186; 90471; 90715; 93005; 93289; 94002; 94003; 95813; 96365; 96366; 96375; 99291; Q9967